=== PATIENT | female | born 1950 | race Caucasian/White ===

== ENCOUNTER 2018-09-27 11:00 | Outpatient (RCR) | payer SELFPAY | END 2018-10-09 23:59 | LOC: NS 11:00 | PROVIDERS: Family Provider Family Medicine; PCP Family Medicine; Visit Provider Family Medicine | DX: E66.9 Obesity, unspecified (principal); Z68.33 Body mass index [BMI] 33.0-33.9, adult; Z71.3 Dietary counseling and surveillance | CPT/HCPCS: 97802; 97803 ==

== ENCOUNTER → 2018-10-02 14:52 | Outpatient (CLI) | payer MEDICARE, SELFPAY ==
[2018-10-02 15:35] LABS: Hematocrit 40.1 % (37-47); Hemoglobin 13.1 g/dL (12.0-15.0); Mean Corp Hgb Conc 32.7 g/dL (32-36); Mean Corpuscular Hgb 31.6 pg (27.0-32.0); Mean Corpuscular Volume 96.6 fL (81-99); Mean Platelet Vol. 9.7 fl (6.2-12.0); Platelet Count 248 K/mm3 (150-450); RBC Distribution Width CV 13.9 % (11.6-14.6); RBC Distribution Width SD 49.5 fl (35.1-43.9); Red Blood Count 4.15 M/mm3 (4.2-5.4); White Blood Count 8.1 K/mm3 (4.4-11.0)
[2018-10-02 16:25] LABS: Anion Gap 5 (5-15); BUN 20 mg/dL (7-18); BUN/Creat Ratio 25.6 RATIO (10-20); Calcium,Total 8.8 mg/dL (8.5-10.1); Chloride 109 mmol/L (98-107); Creatinine, Serum 0.78 mg/dL (0.55-1.02); EST Glomerular Filtration Rate 78 mL/min (>60); Est Glom Filt Rate - Afr Amer 95 mL/min (>60); Glucose 90 mg/dL (74-106); Sodium Level 139 mmol/L (136-145)
[2018-10-07 14:08] LABS: PROEL- A/G Ratio 1.2 (0.7-1.7); PROEL- Albumin 3.8 g/dL (2.9-4.4); PROEL- Alpha-1 Globulin 0.2 g/dL (0.0-0.4); PROEL- Alpha-2 Globulin 0.7 g/dL (0.4-1.0); PROEL- Beta Globulin 0.9 g/dL (0.7-1.3); PROEL- Gamma Globulin 1.3 g/dL (0.4-1.8); PROEL- Globulin, Total 3.2 g/dL (2.2-3.9); PROELU- Albumin, Urine 25.7 % (.); PROELU- Alpha-1-Globulin,Ur 1.2 % (.); PROELU- Alpha-2-Globulin,Ur 9.8 % (.); PROELU- Beta Globulin, Ur 15.9 % (.); PROELU- Gamma Globulin, Ur 47.4 % (.); Total Protein, Ur 33.3 mg/dL (Not Estab.)
== END ==
PROVIDERS: Family Provider Family Medicine; PCP Family Medicine; Referring Provider Orthopaedic Surgery; Visit Provider Orthopaedic Surgery
DX: M25.561 Pain in right knee (principal)
CPT/HCPCS: 36415; 80048; 84165; 84166; 85027

== ENCOUNTER → 2018-10-25 12:35 | Outpatient (CLI) | payer MEDICARE, SELFPAY ==
[2018-10-25 13:20] LABS: Erythrocyte Sedimentation Rate 43 mm/hr (0-30)
[2018-10-25 13:24] LABS: Absolute Lymphocyte Count 1.81 X10^3/uL (0.83-4.51); Absolute Neutrophil Count 4.2 X10^3/uL (2.0-7.7); Basophil# 0.03 X10^3/uL; Basophil% 0.4 % (0-1); Eosinophil# 0.09 X10^3/uL; Eosinophils% 1.3 % (0-5); Hematocrit 39.2 % (37-47); Lymphocyte # 1.81 X10^3/ul (4.0); Lymphocyte % 26.1 % (19-41); Mean Corp Hgb Conc 33.2 g/dL (32-36); Mean Corpuscular Hgb 32.3 pg (27.0-32.0); Mean Corpuscular Volume 97.5 fL (81-99); Mean Platelet Vol. 9.5 fl (6.2-12.0); Monocyte# 0.73 X10^3/uL; Monocyte% 10.5 % (0-10); NRBC Flagged by Analyzer 0 % (0-5); Neutrophil # 4.22 X10^3/uL (2.7-7.7); POSITIVE MORPHOLOGY YES; Platelet Count 224 K/mm3 (150-450); RBC Distribution Width SD 50.9 fl (35.1-43.9); Red Blood Count 4.02 M/mm3 (4.2-5.4); White Blood Count 6.9 K/mm3 (4.4-11.0)
[2018-10-25 13:27] LABS: Differential Indicated SCAN CRITERIA MET
[2018-10-29 16:07] LABS: PROEL- A/G Ratio 1.2 (0.7-1.7); PROEL- Albumin 3.8 g/dL (2.9-4.4); PROEL- Alpha-1 Globulin 0.2 g/dL (0.0-0.4); PROEL- Alpha-2 Globulin 0.7 g/dL (0.4-1.0); PROEL- Gamma Globulin 1.4 g/dL (0.4-1.8); PROEL- Globulin, Total 3.3 g/dL (2.2-3.9); PROEL- TOTAL PROTEIN 7.1 g/dL (6.0-8.5); PROELU- Alpha-1-Globulin,Ur 2.8 % (.); PROELU- Alpha-2-Globulin,Ur 9.3 % (.); PROELU- Beta Globulin, Ur 22.2 % (.); PROELU- Gamma Globulin, Ur 42.6 % (.); Total Protein, Ur 26.1 mg/dL (Not Estab.)
== END ==
PROVIDERS: Family Provider Family Medicine; PCP Family Medicine; Referring Provider Orthopaedic Surgery; Visit Provider Orthopaedic Surgery
DX: M25.561 Pain in right knee (principal); M54.5 Low back pain
CPT/HCPCS: 36415; 84165; 84166; 85025; 85652; 86140

== ENCOUNTER 2018-11-04 10:00 | Outpatient (RCR) | payer SELFPAY | END 2018-11-09 23:59 | LOC: NS 10:00 | PROVIDERS: Family Provider Family Medicine; PCP Family Medicine; Visit Provider Family Medicine | DX: E66.9 Obesity, unspecified (principal); Z68.33 Body mass index [BMI] 33.0-33.9, adult; Z71.3 Dietary counseling and surveillance | CPT/HCPCS: 97803 ==

== ENCOUNTER 2018-12-02 11:30 | Outpatient (RCR) | payer SELFPAY | END 2018-12-09 23:59 | LOC: NS 11:30 | PROVIDERS: Family Provider Family Medicine; PCP Family Medicine; Visit Provider Family Medicine | DX: E66.9 Obesity, unspecified (principal); Z68.33 Body mass index [BMI] 33.0-33.9, adult; Z71.3 Dietary counseling and surveillance | CPT/HCPCS: 97803 ==

== ENCOUNTER 2018-12-30 09:30 | Outpatient (RCR) | payer SELFPAY | END 2018-12-30 23:59 | disposition home or self-care (01) | LOC: NS 09:30 | PROVIDERS: Family Provider Family Medicine; PCP Family Medicine; Visit Provider Family Medicine | DX: Z71.3 Dietary counseling and surveillance (principal); E66.9 Obesity, unspecified; Z68.33 Body mass index [BMI] 33.0-33.9, adult | CPT/HCPCS: 97803 ==

== ENCOUNTER 2020-03-27 10:24 | Emergency (ER) | payer MEDICARE, SELFPAY ==
[2020-03-27 10:25] VITALS: BP 114/83; PULSE 66; RESP 16; TEMP 36.9; O2SAT 95; BMI 33.5
--- NOTE | 2020-03-27 10:35 | ED.DCSUM_ITS ---
History of Present Illness Chief Complaint: Chest Other Informant: Patient Onset: Weeks - 1 week Context: Gradual Onset Current Severity: Mild Maximum Severity: Moderate Narrative: Patient presents secondary to sternal pain after a fall. She reports 1 week ago carrying some [place] wreaths down her basement steps. Her knee gave out on her and she fell striking her left hip and left arm, then hitting her chest against the cement. Patient denies striking her head. She reports pain of the sternal area for the past week but last night started noticing pain rating along the left lower ribs. Pain is worse with movement of her left arm. She has been taking Tylenol as needed for pain. - Past Medical History (1) Asthma Status: Chronic (2) GERD (gastroesophageal reflux disease) Status: Chronic (3) Hypothyroid Status: Chronic Past Medical History - Allergies and Home Meds Allergies/Adverse Reactions: Allergies amoxicillin [Amoxicillin] Allergy (Verified 03/27/20 10:28) Anaphylaxis articaine Allergy (Verified 03/27/20 10:28) Swelling lidocaine Allergy (Verified 03/27/20 10:28) redness/itching raloxifene [From Evista] Allergy (Verified 03/27/20 10:28) Swelling Primary Care Physician: Derian De Jesus MD [Primary Care Provider] - 1 Week if not improving Prior records reviewed: Yes Lives: Spouse/ Significant Other Smoking Status: Former smoker Review of Systems General: Denies: Chills, Fever Eyes: Denies: Visual changes - bilaterally ENT: Denies: Bilateral ear pain Cardiovascular: Reports: Chest pain Respiratory: Reports: Dyspnea. Denies: Cough Gastrointestinal: Denies: Abdominal pain, Nausea, Vomiting, Diarrhea Musculoskeletal: Denies: Neck pain, Back pain Skin: Reports: Wounds - Ecchymoses Neurological: Denies: Headache Hematologic: Denies: Easy bruising, Easy bleeding Allergy: Denies: Uticaria Physical Exam Vital Signs/Narrative: Vital Signs Temp Pulse Resp BP Pulse Ox 03/27/20 10:25 98.5 F 66 16 114/83 H 95 Inital Vital Signs reviewed: Yes General: Well nourished, Well developed Head: Normocephalic ENT: Moist mucous membranes Neck: Supple Cardiovascular: Regular rate, Regular rhythm Respiratory: No distress, CTA bilaterally, Chest tenderness - Reproducible tenderness over the lower sternum. No crepitus. Abdomen: Soft, Nontender Skin: - - Ecchymoses noted to the posterior left upper arm as well as to the underside of the left breast. Neurological: Alert, Oriented x3, Normal Strength, Normal Sensation Psychological: Normal affect Diagnostic/Tx/Re-eval Chest X-Ray - ED: 2 View, Read by ED Physician, Chronic Changes, - - No obvious rib or sternal fracture. Impressions Chest X-Ray 03/27/20 10:45 IMPRESSION: No acute cardiopulmonary process. Electronically Signed: Yris Merchant MD at 11:04 EST Tel , Service support , 03/27/20 10:45 Chest PA and Lateral [RAD] Stat - Medical Decision Making Patient has reproducible chest wall pain after a fall. 2 view chest x-ray is unremarkable. Patient is reassured with these findings and will continue Tylenol at home. She declines anything stronger for pain. ED Disposition - Plan for ED Patient: Disposition: Home or Assisted Living Diagnosis: Chest wall contusion Instructions: ED Chest Wall Contusion Referrals: Derian De Jesus MD [Primary Care Provider] - 1 Week if not improving
--- NOTE | 2020-03-27 10:45 | RAD_ITS ---
STUDY: X-RAY CHEST REASON FOR EXAM: Female, 69 years old. CHEST PAIN WITH MOVEMENT POST FALL X 1 WEEK AGO. LEFT ARM AND SHOULDER PAIN. TECHNIQUE: Frontal and lateral views of the chest. COMPARISON: 05/29/2016 FINDINGS: There is stable blunting of the left costophrenic angle. There is no new focal consolidation. Normal size heart. Normal mediastinum and karen. Normal visualized pulmonary arteries. Normal visualized aortic arch and descending thoracic aorta. There are diffuse degenerative changes of the visualized thoracic spine. Normal visualized ribs, clavicles, and shoulders. There is no demonstrated abnormality of the visualized soft tissue structures of the upper abdomen. RAD/Chest PA and Lateral IMPRESSION: No acute cardiopulmonary process. Electronically Signed: Yris Merchant MD at 11:04 EST Tel , Service support ,
== END 2020-03-27 11:37 | disposition home or self-care (01) ==
PROVIDERS: Emergency Provider Emergency Medicine; PCP Family Medicine
DX: S20.219A Contusion of unspecified front wall of thorax, initial encounter (principal); W01.198A Fall on same level from slipping, tripping and stumbling with subsequent striking against other object, initial encounter; Y93.9 Activity, unspecified; Y92.098 Other place in other non-institutional residence as the place of occurrence of the external cause; Y99.9 Unspecified external cause status; E03.9 Hypothyroidism, unspecified; J45.909 Unspecified asthma, uncomplicated; K21.9 Gastro-esophageal reflux disease without esophagitis; Z87.891 Personal history of nicotine dependence; Z88.0 Allergy status to penicillin
CPT/HCPCS: 71046; 99282

== ENCOUNTER 2020-05-18 23:05 | Outpatient (RCR) | payer MEDICARE, SELFPAY ==
[2020-05-18] MEDS: COVID-19 VACC, MRNA(PFIZER)/PF 30 MCG/0.3 ML SYRINGE IM (12:18)
[2020-06-08] MEDS: COVID-19 VACC, MRNA(PFIZER)/PF 30 MCG/0.3 ML SYRINGE IM (09:32)
== END 2020-08-17 23:59 ==
LOC: IMMUN 23:05
PROVIDERS: PCP Family Medicine; Visit Provider Family Medicine
DX: Z23 Encounter for immunization (principal)
CPT/HCPCS: 0001A; 0002A; 91300

== ENCOUNTER → 2020-05-19 06:44 | Outpatient (CLI) | payer MEDICARE, SELFPAY ==
--- NOTE | 2020-05-19 06:46 | CT_ITS ---
STUDY: CT RIGHT LOWER EXTREMITY REASON FOR EXAM: Osteoarthritis, presurgical planning. TECHNIQUE: Transaxial CT imaging of the lower extremity was performed. Coronal and sagittal images were reformatted. Individualized dose optimization techniques were used for this CT. COMPARISON: None. FINDINGS: Knee: Normal medial femoral condyle and medial tibial plateau. There are small marginal osteophytes of the medial femoral condyle with preservation of the articular joint space of the medial knee compartment. There is a subchondral cyst in the lateral tibial plateau (coronal reconstructions 37, 38). There are small marginal osteophytes of the lateral femoral condyle with preservation of the articular joint space of the lateral knee compartment. There are marginal osteophytes with severe joint space narrowing of the lateral aspect of the patellofemoral articulation (axial images 278-to 32) with lateral tilt and lateral subluxation of the patella. Normal proximal tibiofibular articulation. There is no joint effusion. The quadriceps tendon is grossly normal. There is an ossicle at the anterior tibial tubercle, a sequelae of remote Les-Schlatter''s disease. Normal Hoffa''s fat pad. There is a very small intra-articular body at the posterior lateral aspect of the knee (sagittal reconstruction 33). Hip: Unremarkable hip joint. Ankle: Unremarkable tibiotalar, posterior subtalar, talonavicular and calcaneocuboid articulations. CT/Extremity Lower without Contra IMPRESSION: Patellofemoral osteoarthritis. Electronically Signed: Shmuel Sales MD at 11:42 EST Tel , Service support ,
== END ==
PROVIDERS: PCP Family Medicine; Referring Provider Orthopaedic Surgery; Visit Provider Orthopaedic Surgery
DX: M17.11 Unilateral primary osteoarthritis, right knee (principal)
CPT/HCPCS: 73700

== ENCOUNTER 2020-06-07 17:19 | Observation (INO) | payer MEDICARE, SELFPAY ==
--- NOTE | 2020-05-25 12:48 | EKG12_ITS ---
Test Reason : PRE SURGERY Blood Pressure : / mmHG Vent. Rate : 057 BPM Atrial Rate : 057 BPM P-R Int : 176 ms QRS Dur : 088 ms QT Int : 432 ms P-R-T Axes : 057 006 011 degrees QTc Int : 420 ms Sinus bradycardia Otherwise normal ECG Confirmed by JOSUE PAREDES, BRAN ([id number]), non linear editor HARDEEP FRANKS ([id number]) on 05/26/2020 10:06:24 AM Referred By: Osbaldo Armenta Confirmed By:BRAN SALAS MD
[2020-05-25 13:50] LABS: Hematocrit 46.6 % (37-47); Hemoglobin 14.4 g/dL (12.0-15.0); Mean Corp Hgb Conc 30.9 g/dL (32-36); Mean Corpuscular Hgb 28.7 pg (27.0-32.0); Mean Platelet Vol. 12.5 fl (6.2-12.0); Platelet Count 238 K/mm3 (150-450); RBC Distribution Width CV 14.3 % (11.6-14.6); RBC Distribution Width SD 48.5 fl (35.1-43.9); Red Blood Count 5.01 M/mm3 (4.2-5.4); White Blood Count 6.6 K/mm3 (4.4-11.0)
[2020-05-25 13:57] LABS: Prothrombin Time (Protime)PT. 12.6 SECONDS (11.7-14.9)
[2020-05-25 14:10] LABS: Anion Gap 5 (5-15); BUN 21 mg/dL (7-18); BUN/Creat Ratio 23.4 RATIO (10-20); Calcium,Total 9.5 mg/dL (8.5-10.1); Chloride 107 mmol/L (98-107); EST Glomerular Filtration Rate 67 mL/min (>60); Est Glom Filt Rate - Afr Amer 81 mL/min (>60); Glucose 72 mg/dL (74-106); Potassium 3.6 mmol/L (3.5-5.1); Sodium Level 140 mmol/L (136-145)
[2020-05-25 14:28] LABS: AST(SGOT) 11 U/L (15-37); Alanine Aminotransfer ALT/SGPT 23 U/L (13-56); Albumin, Serum 3.9 g/dL (3.2-5.0); Alkaline Phosphatase 98 U/L (45-117); Bilirubin, Direct 0.18 mg/dL (0.00-0.30); Globulin 3.3 g/dL (2.2-4.2); Magnesium 2.3 mg/dL (1.6-2.6); Protein, Total 7.2 g/dL (6.4-8.2); Thyroid Stim Hormone (TSH) 1.26 uIU/mL (0.358-3.74)
[2020-06-07] VITALS (12 sets, daily range): BP systolic 95–138; BP diastolic 47–75; PULSE 16–82; RESP 16; TEMP 35.9–36.7; O2SAT 89–99; BMI 33.3
[2020-06-07] MEDS: Acetaminophen 500 MG Tablet 1000 MG PO ×2 (12:18→21:09)
[2020-06-07] MEDS: Gabapentin 600 MG Tablet PO (12:18)
[2020-06-07 12:20] LABS: Bedside Glucose 80 mg/dL (70-110)
[2020-06-07] MEDS: Lactated Ringers 1,000 ML 100 ML IV (12:21)
--- NOTE | 2020-06-07 13:30 | KNEE_PTH ---
PATIENT: RODERICK ORTIZ LOC: MS3 U#:[id number] AGE/SX: 70/F ROOM: [facility] [place]06/07/[address]: Dr. Osbaldo Armenta DO : 1950 BED: 1 DIS: 06/08/2020 SPEC #: [id number] RECD: 06/07/20 15:22 STATUS: CLARE REMaría #: [id number] MIKAL: 06/07/20 13:[address]: Osbaldo Armenta DEPT: SURGICAL PATHOLOGY RECD BY: Mala Moore ENTERED: 06/08/20 07:40 SP TYPE: TOTAL KNEE OTHR DR: Dr. Derian De Jesus MD Tissues: Knee, NOS Procedures: Decalcification bone/plaque Surgery Specimen Level IV HEADER OPERATION: ERAS, total knee replacement robotic arm assist PRE-OP DIAGNOSIS: Primary osteoarthritis TISSUE SUBMITTED: Right knee bone MICROSCOPIC DIAGNOSIS Right knee bone, total knee replacement/resection: Pieces of bone with degenerative osteoarthritic changes. Fibroadipose tissue, fibroconnective tissue and reactive synovial tissue. JAJA:lynn 06/11/2020 MICROSCOPIC DESCRIPTION Slides are reviewed. GROSS DESCRIPTION Received is one container designated right knee bone. The specimen consists of multiple fragments of gavin-yellow bone measuring in aggregate 8 x 9 x 3 cm. Also in the specimen container are multiple fragments of yellow-white soft tissue measuring in aggregate 7 x 7 x 3 cm. A number of bony fragments contain articular surfaces consistent with tibial plateau and femoral condyle and displaying prominent osteophyte formation, eburnation, and bone erosion. Door Clamp Operator sections are submitted in two cassettes as follows: 1 - soft tissue, 2 - bone after decalcification. / JAJA:lynn 06/08/20 TC:5 [facility]: [id number], [id number]
--- NOTE | 2020-06-07 14:18 | OP.PCM_ITS ---
Report of Operation Date of Procedure: 06/07/20 Pre-Operative Diagnosis: OA right knee Post-Operative Diagnosis: same Surgery/Procedure Performed:: Right TKR railroad brake operator: Yogesh Villarreal Type of Anesthesia:: Spinal Anesthesiologist: Rohan Longoria Specimen's removed: bone - Admit VTE Documentation VTE Present on Admission: No VTE Mechan Device Prophylaxis: SCD's, Thigh High RAMA Hose VTE Pharm Prophylaxis ordered?: Yes
[2020-06-07] MEDS: Lactated Ringers 1,000 ML 999 ML IV (15:25)
--- NOTE | 2020-06-07 16:25 | RAD_ITS ---
STUDY: X-RAY - RIGHT KNEE REASON FOR EXAM: Female, 70 years old. POST-OP TOTAL KNEE TECHNIQUE: 2 view(s) of the knee. COMPARISON: None. FINDINGS: Status post total knee arthroplasty. Surgical hardware intact/well aligned. No acute complications. Postoperative soft tissues with staple line. RAD/Knee 1 or 2 Views IMPRESSION: Uncomplicated right knee arthroplasty Electronically Signed: Rohan Gan DO at 8:29 EDT Tel , Service support ,
[2020-06-07 16:38] LABS: Absolute Lymphocyte Count 0.69 X10^3/uL (0.83-4.51); Absolute Neutrophil Count 11.4 X10^3/uL (2.0-7.7); Basophil# 0.03 X10^3/uL; Basophil% 0.2 % (0-1); Eosinophil# 0.02 X10^3/uL; Eosinophils% 0.2 % (0-5); Hematocrit 44.6 % (37-47); Hemoglobin 14.2 g/dL (12.0-15.0); Lymphocyte # 0.69 X10^3/ul (4.0); Lymphocyte % 5.5 % (19-41); Mean Corp Hgb Conc 31.8 g/dL (32-36); Mean Corpuscular Hgb 29.5 pg (27.0-32.0); Mean Corpuscular Volume 92.7 fL (81-99); Mean Platelet Vol. 10.9 fl (6.2-12.0); Monocyte# 0.28 X10^3/uL; Monocyte% 2.2 % (0-10); NRBC Flagged by Analyzer 0 % (0-5); Neutrophil % 91.4 % (47-70); Platelet Count 230 K/mm3 (150-450); RBC Distribution Width CV 14.4 % (11.6-14.6); RBC Distribution Width SD 49.6 fl (35.1-43.9); Red Blood Count 4.81 M/mm3 (4.2-5.4); White Blood Count 12.5 K/mm3 (4.4-11.0)
[2020-06-07 17:00] LABS: Anion Gap 5 (5-15); BUN 15 mg/dL (7-18); BUN/Creat Ratio 17.3 RATIO (10-20); Calcium,Total 8.9 mg/dL (8.5-10.1); Chloride 108 mmol/L (98-107); Creatinine, Serum 0.87 mg/dL (0.55-1.02); EST Glomerular Filtration Rate 69 mL/min (>60); Est Glom Filt Rate - Afr Amer 84 mL/min (>60); Estimated Creatinine Clearance 57.94 ml/min; Glucose 140 mg/dL (74-106); Potassium 5.1 mmol/L (3.5-5.1); Sodium Level 140 mmol/L (136-145)
[2020-06-07] MEDS: Lactated Ringers 1,000 ML 125 ML IV (17:52)
[2020-06-07] MEDS: oxyCODONE 5 MG Tablet PO ×2 (18:37→23:08)
[2020-06-07] MEDS: Budesonide Respules 0.5 MG/2 ML AMPUL.NEB. INHALATION (19:18)
[2020-06-07] MEDS: Aspirin 81 MG TAB.CHEW PO (21:08)
[2020-06-07] MEDS: Senna/Docusate Sodium 1 Tablet 2 TABLET PO (21:08)
[2020-06-07] MEDS: Oxybutynin 5 MG Tablet 10 MG PO (21:08)
[2020-06-08] VITALS: O2SAT 92
--- NOTE | 2020-06-08 | CPS ---
Oxygen bled into Pt's home CPAP unit at 2 lpm.
[2020-06-08 02:46] VITALS: BP 110/58; PULSE 70; RESP 18; TEMP 36.9; O2SAT 94
[2020-06-08] MEDS: Levothyroxine 137 MCG Tablet PO (05:17)
[2020-06-08] MEDS: Acetaminophen 500 MG Tablet 1000 MG PO ×2 (05:17→14:10)
[2020-06-08 06:35] LABS: Hematocrit 41.4 % (37-47); Hemoglobin 13.5 g/dL (12.0-15.0); Mean Corp Hgb Conc 32.6 g/dL (32-36); Mean Corpuscular Hgb 29.9 pg (27.0-32.0); Mean Corpuscular Volume 91.8 fL (81-99); Mean Platelet Vol. 11.3 fl (6.2-12.0); Platelet Count 300 K/mm3 (150-450); RBC Distribution Width CV 14.5 % (11.6-14.6); Red Blood Count 4.51 M/mm3 (4.2-5.4); White Blood Count 18.3 K/mm3 (4.4-11.0)
[2020-06-08 06:57] VITALS: PULSE 79; RESP 16
[2020-06-08] MEDS: Budesonide Respules 0.5 MG/2 ML AMPUL.NEB. INHALATION (06:57)
[2020-06-08 06:59] LABS: Anion Gap 5 (5-15); BUN 18 mg/dL (7-18); BUN/Creat Ratio 21.4 RATIO (10-20); Calcium,Total 9.1 mg/dL (8.5-10.1); Chloride 108 mmol/L (98-107); Creatinine, Serum 0.84 mg/dL (0.55-1.02); EST Glomerular Filtration Rate 72 mL/min (>60); Est Glom Filt Rate - Afr Amer 87 mL/min (>60); Estimated Creatinine Clearance 60.01 ml/min; Glucose 108 mg/dL (74-106); Potassium 4.5 mmol/L (3.5-5.1); Sodium Level 137 mmol/L (136-145)
[2020-06-08 07:40] VITALS: BP 108/55; PULSE 69; RESP 18; TEMP 36.9; O2SAT 94
--- NOTE | 2020-06-08 07:50 | PN.ORTHO_ITS ---
Subjective: Patient sitting at bedside eating breakfast. Patient states pain is well- managed. Patient denies chest pain, shortness of breath, calf pain, nausea vomiting. Patient states she is ready for discharge home today. Objective: Dressing is clean dry intact. Negative signs and symptoms of DVT. Vital signs labs were all reviewed noted in the medical record. Patient is afebrile. Neurovascular she is otherwise intact. Patient has no respiratory distress and speaking in full sentences - Physical Exam Vitals/I&O's: Vital Signs Temp Pulse Resp BP Pulse Ox 98.4 F 69 18 108/55 L 94 06/08/20 07:40 06/08/20 07:40 06/08/20 07:40 06/08/20 07:40 06/08/20 07:40 Oxygen Flow Rate (L/min) 2 Oxygen Delivery Method Room Air Weight: 93.8 kg Body Mass Index (BMI) 33.3 Intake and Output for Last 24 Hours 06/06/20 06/07/20 06/08/20 23:59 23:59 23:59 Intake Total 3202.0 / 3202.0 54 / 54 Output Total 300 / 300 Balance 3202.0 / 2902.0 -246 / -246 General: Alert, Oriented x3, Cooperative HEENT: PERRLA Oral: Moist Mucosa Neurological: Cranial nerves II-XII grossly intact Psych/Mental Status: Normal Affect, Alert and oriented to time, place, person, mood and affect Laboratory Results 06/07/20 11:52: POC Glucose 80 06/07/20 16:26: WBC 12.5 H, RBC 4.81, Hgb 14.2, Hct 44.6, MCV 92.7, MCH 29.5, MCHC 31.8 L, RDW Std Deviation 49.6 H, RDW Coeff of Kayce 14.4, Plt Count 230, MPV 10.9, Immature Gran % (Auto) 0.500, Neut % (Auto) 91.4 H, Lymph % (Auto) 5.5 L, Laurel % (Auto) 2.2, Eos % (Auto) 0.2, Baso % (Auto) 0.2, Absolute Neuts (auto) 11.4 H, Absolute Lymphs (auto) 0.69 L, Nucleated RBC % 0 06/07/20 16:26: Sodium 140, Potassium 5.1, Chloride 108 H, Carbon Dioxide 27.0, Anion Gap 5, BUN 15, Creatinine 0.87, Estim Creat Clear Calc 57.94, Est GFR (MDRD) Af Amer 84, Est GFR (MDRD) Non-Af 69, BUN/Creatinine Ratio 17.3, Glucose 140 H, Calcium 8.9 06/08/20 05:40: WBC 18.3 H, RBC 4.51, Hgb 13.5, Hct 41.4, MCV 91.8, MCH 29.9, MCHC 32.6, RDW Std Deviation 49.0 H, RDW Coeff of Kayce 14.5, Plt Count 300, MPV 11.3 06/08/20 05:40: Sodium 137, Potassium 4.5, Chloride 108 H, Carbon Dioxide 24.0, Anion Gap 5, BUN 18, Creatinine 0.84, Estim Creat Clear Calc 60.01, Est GFR (MDRD) Af Amer 87, Est GFR (MDRD) Non-Af 72, BUN/Creatinine Ratio 21.4 H, Glucose 108 H, Calcium 9.1 Current Medications Acetaminophen (Acetaminophen 500 Mg Tablet) 1,000 mg PO Q8 PENDING SALE TO [facility] Last Admin: 06/08/20 05:17 Dose: 1,000 mg Documented by: Aspirin (Aspirin 81 Mg Tab.Chew) 81 mg PO BID PENDING SALE TO [facility] Last Admin: 06/07/20 21:08 Dose: 81 mg Documented by: Budesonide (Budesonide Respules 0.5 Mg/2 Ml Ampul.Neb.) 0.5 mg INHALATION Q12H.RT PENDING SALE TO [facility] Last Admin: 06/08/20 06:57 Dose: 0.5 mg Documented by: Fluticasone Propionate (Fluticasone 0.05% [address] [place] Nasal.Sry) 2 spray NASAL DAILY PENDING SALE TO [facility] Sodium Chloride () 250 mls @ 15 mls/hr IV .[id number] PRN PRN Reason: Saline Flush Sodium Chloride () 250 mls @ 15 mls/hr IV .[id number] PRN PRN Reason: Additional IVPB Infusion Levothyroxine Sodium (Levothyroxine 137 Mcg Tablet) 137 mcg PO DAILY@0600 PENDING SALE TO [facility] Last Admin: 06/08/20 05:17 Dose: 137 mcg Documented by: Non-Formulary Medication (Ibrutinib [Imbruvica]) 420 mg PO DAILY PENDING SALE TO [facility] Ondansetron HCl (Ondansetron 4 Mg/2 Ml Vial) 4 mg IV Q8H PRN PRN PRN Reason: NAUSEA Oxybutynin Chloride (Oxybutynin 5 Mg Tablet) 10 mg PO BID PENDING SALE TO [facility] Last Admin: 06/07/20 21:08 Dose: 10 mg Documented by: Oxycodone HCl (Oxycodone 5 Mg Tablet) 5 - 10 mg PO Q4H PRN PRN PRN Reason: Pain Score 4-10 Last Admin: 06/07/20 23:08 Dose: 10 mg Documented by: Pantoprazole Sodium (Pantoprazole Sodium 20 Mg Tablet) 20 mg PO DAILY PENDING SALE TO [facility] Promethazine HCl (Promethazine 25 Mg/Ml Syringe) 12.5 mg IM Q6H PRN PRN; Louie col PRN Reason: NAUSEA/VOMITING Senna/Docusate Sodium (Senna/Docusate Sodium 1 Tablet) 2 tablet PO BID PENDING SALE TO [facility] Last Admin: 06/07/20 21:08 Dose: 2 tablet Documented by: Sodium Chloride (0.9% Saline Lock 10 Ml Syringe) 10 - 40 ml IV UD PRN PRN Reason: SALINE FLUSH Medical Necessity - Tobacco Use Smoking Status: Never smoker Tobacco Use: Non-smoker Assessment/Plan Status post right total knee arthroplasty Plan 1. Continue all pain medications as prescribed 2. Continue physical therapy, weight-bear as tolerated with walker 3. 81 mg aspirin 1 p.o. every 12 hours x30 days for postop DVT prophylaxis 4. Encourage incentive spirometry 5. Discharge home today after p.m. therapy 6. Patient will continue her physical therapy at [facility] [place] Follow-up as scheduled, see pink sheet
[2020-06-08] MEDS: Oxybutynin 5 MG Tablet 10 MG PO (07:53)
[2020-06-08] MEDS: Pantoprazole Sodium 20 MG Tablet PO (07:53)
[2020-06-08] MEDS: Senna/Docusate Sodium 1 Tablet 2 TABLET PO (07:53)
[2020-06-08] MEDS: oxyCODONE 5 MG Tablet PO ×2 (07:53→11:52)
[2020-06-08] MEDS: Fluticasone 0.05% 1 SPRAY NASAL.SRY 2 SPRAY NASAL (07:54)
[2020-06-08] MEDS: Aspirin 81 MG TAB.CHEW PO (07:55)
--- NOTE | 2020-06-08 07:57 | DCINST_ITS ---
Discharge Diet: No Restrictions Discharge Activity: May Not Drive, May Shower, Use Walker May shower in (days): 3 Ice area for (Minutes): 20 - each hour while awake. Weight Bearing Status: Weight bearing as tolerated Elevate: Operative Extremity Additional Activity Instructions:: Wear elastic stockings for 2 weeks after your surgery. Call your doctor if your incision/area has: Continuous Slow Oozing, Sudden Increased Bleeding, Increased Pain/ Swelling, Increased Redness, Foul Smelling Discharge Call your doctor if you observe: Fever of 101 or Higher, Coldness, Increased Pain - in extremity, Numbness or Tingling, Change in Color, Calf discomfort, Uncontrolled pain Change Dressing in (Days):: 0 - and daily as needed. Remove Dressing in (days):: 8 Cleanse incision/area with: Soap & Water Allergies/Adverse Reactions: Allergies amoxicillin [Amoxicillin] Allergy (Verified 06/07/20 11:41) Anaphylaxis articaine Allergy (Verified 06/07/20 11:41) Swelling lidocaine Allergy (Verified 06/07/20 11:41) redness/itching raloxifene [From Evista] Allergy (Verified 06/07/20 11:41) Swelling morphine Adverse Reaction (Verified 06/07/20 11:41) Nausea/Vom/Diarrhea Medications to take at Discharge Cyanocobalamin (Vitamin B-12) [Vitamin B-12] 1,000 mcg PO DAILY 04/19/14 Oxybutynin [Ditropan] 10 mg PO BID 04/19/14 Cholecalciferol (Vitamin D3) [Vitamin D3] 1 cap PO DAILY 04/23/16 Fluticasone 0.05% [Flonase Nasal [place]] 2 sprays NARES DAILY 04/23/16 Mometasone Furoate [Asmanex 220 mcg [place]] 2 sprays INHALATION DAILY 04/23/16 Ibrutinib [Imbruvica] 420 mg PO DAILY 03/27/20 Levothyroxine Sodium 137 mcg PO DAILY 03/27/20 Celecoxib [Celebrex] 100 mg PO DAILY 05/24/20 Clindamycin [Cleocin] 300 mg PO 4X/DAY 05/24/20 Omeprazole [Prilosec] 20 mg PO DAILY 05/24/20 Acetaminophen [Tylenol] 1,000 mg PO Q8 #90 tablet 06/08/20 Aspirin [Aspirin, Baby] 81 mg PO BID #60 tab.chew 06/08/20 Oxycodone [Oxyir] 5 - 10 mg PO Q4H PRN PRN 7 Days #84 tablet 06/08/20 Senna/Docusate Sodium [Senokot-S] 2 tablet PO BID tablet 06/08/20 The following prescriptions were given: Aspirin [Aspirin, Baby] 81 mg PO BID #60 tab.chew Transmission Status: Pending to [facility] Oxycodone [Oxyir] 5 - 10 mg PO Q4H PRN PRN 7 Days #84 tablet PRN Reason: Pain Score 4-10 Transmission Status: Sent to [facility] Acetaminophen [Tylenol] 1,000 mg PO Q8 #90 tablet Transmission Status: Pending to [facility] Primary Care Physician: Derian De Jesus MD [Primary Care Provider] - Test Results: Test results from this visit will be discussed in further detail at your follow- up appointment, if applicable. Please Follow Up With: Yogesh Villarreal PA-C When: as scheduled (see pink sheet)
[2020-06-08 10:22] VITALS: O2SAT 98
--- NOTE | 2020-06-08 11:00 | CASEMGMT ---
STORMY VIZCARRA Face to Face with patient for initial transition planning/care coordination assessment. RN CARMITA introduced self and role at [facility]. Patient sitting in chair, alert and oriented, at bedside. Patient willing to participate in assessment and is able to answer all questions appropriately. Care providers, pharmacy, and demographics verified. Patient wishes to discharge home and has outpatient therapy scheduled with [facility]. Patient states she has no further needs or concerns at this time. CM to follow for discharge planning needs that may arise. PCP: Neal Specialists: aditya Armenta; Devendra, oncologist; Lyndsey, poultry field service technician Preferred Pharmacy: [facility] Insurance: [employer] Prescription Benefit: yes Living Will/HPOA: yes, Stephen Gutiérrez LNOK: Living Arrangements: Patient lives with in a single story home with 1 step to enter the home. Patient states she was independent at home prior to surgery. Transportation: DME/C: Patient states she has raised toilet, grab bars, walker, bipap, and nebulizer at home. Patient is scheduled for outpatient therapy at [facility] starting Sunday. Disposition Plan: Patient to discharge home with outpatient therapy, family support, and follow-up plans in place. Katelyn MOHAMUD, RN, CM
[2020-06-08 11:44] VITALS: BP 102/52; PULSE 72; RESP 18; TEMP 36.9; O2SAT 94
== END 2020-06-08 14:26 | disposition home or self-care (01) ==
LOC: SDC 17:31 → MS3 17:31
PROVIDERS: Anesthesiology; Admitting Provider Orthopaedic Surgery; PCP Family Medicine; Referring Provider Orthopaedic Surgery; Visit Provider Orthopaedic Surgery
PROC: 0SRC0JZ Replacement of Right Knee Joint with Synthetic Substitute, Open Approach (ICD-10-PCS; CPT 27447; principal; 2020-06-07 13:00)
DX: M17.11 Unilateral primary osteoarthritis, right knee (principal); Z20.828 Contact with and (suspected) exposure to other viral communicable diseases; E03.9 Hypothyroidism, unspecified; K21.9 Gastro-esophageal reflux disease without esophagitis; Z86.2 Personal history of diseases of the blood and blood-forming organs and certain disorders involving the immune mechanism; K58.9 Irritable bowel syndrome, unspecified; Z79.899 Other long term (current) drug therapy; J44.9 Chronic obstructive pulmonary disease, unspecified; C83.50 Lymphoblastic (diffuse) lymphoma, unspecified site
CPT/HCPCS: 01402; 27447; 64447; S2900; 36415; 73560; 80048; 80076; 82962; 83735; 84443; 85025; 85027; 85610; 85730; 87081; 87426; 88305; 88311; 93005; 94640; 96361; 96365; 96366; 97110; 97116; 97162; 97166; 97530; 97535; 99218; 99251; C1776; C9803; J7120; G0378; G0379; G0463; J2405

== ENCOUNTER → 2020-06-30 12:51 | Outpatient (CLI) | payer MEDICARE, SELFPAY ==
[2020-06-07 17:13] VITALS: BMI 33.3
--- NOTE | 2020-06-30 12:55 | CT_ITS ---
STUDY: CT CHEST WITHOUT CONTRAST REASON FOR EXAM: Female, 70 years old. Right lung nodule. RADIATION DOSAGE (If Supplied By Facility): CTDIvol = ( 13.36 ) mGy, DLP = ( 407.33 ) mGycm TECHNIQUE: Transaxial imaging was performed without the administration of intravenous contrast material. Multiplanar coronal and sagittal images were reformatted. Individualized dose optimization techniques were used for this CT. COMPARISON: Comparison is made with prior chest radiograph dated 05/31/2020. FINDINGS: No pulmonary nodule is seen. Mild degree of emphysematous changes. There is evidence of a healed anterior rib fracture with callus formation. This most likely was a questionable nodular seen on the chest radiograph. Mild increased markings in the left lower lobe suggestive of scarring. There is no demonstrated pleural abnormality. Normal heart and pericardium. There are multiple small lymph nodes within the mediastinum, which are normal in size and morphology most compatible with reactive lymph hyperplasia. Normal hilar regions. Normal unenhanced pulmonary arteries. Normal aorta arch and descending thoracic aorta. There are multi-level degenerative changes of the thoracic spine. There is no demonstrated abnormality of the visualized upper abdomen. CT/Chest without Contrast IMPRESSION: No pulmonary nodule is seen. There is evidence of a healed anterior right rib fracture which may have led to the possible nodular density seen on the chest radiograph. Mild increased markings at the left lung base suggestive of atelectasis. Electronically Signed: Arpit Salazar MD at 13:36 EDT , Service support ,
== END ==
PROVIDERS: PCP Family Medicine; Referring Provider Internal Medicine Pulmonary Disease; Visit Provider Internal Medicine Pulmonary Disease
DX: R91.8 Other nonspecific abnormal finding of lung field (principal)
CPT/HCPCS: 71250

== ENCOUNTER → 2020-11-17 10:45 | Outpatient (CLI) | payer MEDICARE, SELFPAY ==
[2020-06-07 17:13] VITALS: BMI 33.3
--- NOTE | 2020-11-17 10:50 | ECHOD_ITS ---
Reason For Study: Eval for PHTN Procedure This was a 2D Doppler, Color Flow transthoracic echocardiogram. The exam was of adequate technical quality. Exam performed in department. Left Ventricle Normal LV size. Left ventricular systolic function is normal. The estimated ejection fraction is 65 %. No evidence for diastolic dysfunction. No regional wall motion abnormalities noted. Right Ventricle Normal RV size. Normal systolic function. Atria Normal left atrium. Normal right atrium. No doppler evidence for ASD. Mitral Valve There is no mitral annular calcification. Normal mitral valve. Trivial mitral valve insufficiency. Tricuspid Valve Normal tricuspid valve. Trivial tricuspid valve insufficiency. Right ventricular systolic pressure estimated to be 31 mmHg. Aortic Valve Trisinus/trileaflet aortic valve. The aortic valve is not well visualized. Pulmonic Valve The pulmonic valve is not well visualized. Trivial pulmonic valve insufficiency. Great Vessels Normal sized aortic root. Pericardium/Pleural No pericardial effusion. MMode/2D Measurements & Calculations LVIDd: 4.1 cm IVSd: 0.90 cm Ao root diam: 3.4 cm LVIDs: 2.2 cm LVPWd: 0.83 cm LA dimension: 3.8 cm FS: 46.5 % LAV(MOD-bp): 45.7 ml LA A4 area: 17.3 cm2 RA A4 area: 14.2 cm2 LAV(MOD-bp) Indexed: 22.9 ml/m2 LAV(MOD-sp2): 47.0 ml LAV(MOD-sp4): 44.0 ml Time Measurements MV dec time: 0.23 sec Doppler Measurements & Calculations MV E max cesar: 74.4 cm/sec Lat Peak E' Cesar: 10.2 cm/sec Med Peak E' Cesar: 9.2 cm/sec MV A max cesra: 78.0 cm/sec E/E' lat: 7.3 E/E' med: 8.1 MV E/A: 0.95 MV V2 max: 91.7 cm/sec MV P1/2t max cesar: 71.7 cm/sec Ao V2 max: 138.6 cm/sec MV max P.4 mmHg MV P1/2t: 103.3 msec Ao max P.7 mmHg MV V2 mean: 44.5 cm/sec MV dec slope: 203.4 cm/sec2 MV mean P.96 mmHg MVA(P1/2t): 2.1 cm2 MV V2 VTI: 33.7 cm LV V1 max: 137.0 cm/sec PA V2 max: 95.3 cm/sec LV V1 max P.5 mmHg PI dec slope: 198.1 cm/sec2 TR max cesar: 265.3 cm/sec TR max P.2 mmHg ECHO/Echo Complete Interpretation Summary Left ventricular systolic function is normal. The estimated ejection fraction is 65 %. Trivial mitral valve insufficiency. Trivial tricuspid valve insufficiency. Trivial pulmonic valve insufficiency. Right ventricular systolic pressure estimated to be 31 mmHg. No evidence for diastolic dysfunction. Ordering Physician: Isaac Solorio Referring Physician: MD Neal Derian Performed By: Mikel Allen [facility]
== END ==
PROVIDERS: PCP Family Medicine; Referring Provider Internal Medicine Pulmonary Disease; Visit Provider Internal Medicine Pulmonary Disease
DX: R06.00 Dyspnea, unspecified (principal)
CPT/HCPCS: 93306

== ENCOUNTER → 2022-05-24 | Outpatient (CLI) | payer MEDICARE, SELFPAY ==
--- NOTE | 2022-05-24 14:46 | CT_ITS ---
STUDY: CT Abdomen And Pelvis W/O Contrast Injection 05/24/2022 3:17 PM REASON FOR EXAM: Female, 72 years old. Abdominal pain STONES/UTI. HISTORY OF LYMPHOMA AND TUBIAL LIGATION Individualized dose optimization techniques were used for this CT. COMPARISON: 04.23.16. TECHNIQUE: CT Abdomen And Pelvis W/O Contrast Injection FINDINGS: The visualized lung bases are unremarkable. The visualized portions of the heart are within normal limits. Normal liver. There is a solitary gallstone. Normal spleen. Normal pancreas. Normal bilateral adrenal glands. Non obstructive 2 mm right renal parenchymal stones. Non obstructive 7.8mm left renal parenchymal stones. There are hypodensities in the left kidney. These are consistent for cysts. No follow up required. Normal visualized stomach. Normal small intestine. There are multiple colonic diverticula consistent with diverticulosis. The appendix is visualized and appears normal. There are calcifications of the abdominal aorta. This is consistent for atherosclerotic disease. There is NO abdominal aortic aneurysm. Vascular workup can be obtained based on clinical correlation. Normal inferior vena cava. Subcentimeter mesenteric lymph nodes. Normal urinary bladder. There is an umbilical hernia containing fat. There are diffuse degenerative changes of the visualized lumbar spine. CT/Abdomen/Pelvis without Cont IMPRESSION: (NOT LISTED IN ORDER OF SIGNIFICANCE) There are bilateral renal calculi. There is no evidence for an obstruction. There is no hydronephrosis. There is a solitary gallstone. Other findings as above. Electronically Signed: Aaron Moon MD at 15:21 EDT ,
== END | disposition home or self-care (01) ==
LOC: CT 14:44
PROVIDERS: PCP Family Medicine; Referring Provider Urology; Visit Provider Urology
DX: N20.0 Calculus of kidney (principal); N39.0 Urinary tract infection, site not specified
CPT/HCPCS: 74176

== ENCOUNTER → 2022-06-07 | Outpatient (CLI) | payer MEDICARE, SELFPAY ==
--- NOTE | 2022-06-07 08:59 | RAD_ITS ---
EXAM: XR ABDOMEN, 1 VIEW CLINICAL INDICATION: STONE TECHNIQUE: Frontal supine view of the abdomen/pelvis. This report was created using [employer] report generation technology. COMPARISON: None. FINDINGS: LOWER THORAX: No acute pathology. GASTROINTESTINAL TRACT: Unremarkable. Non-obstructive. No bowel or stomach distention. ORGANS: Unremarkable as visualized. No organomegaly. No abnormal calcifications. BONES/JOINTS: No acute pathology. SOFT TISSUES: No acute pathology. RAD/Abdomen Single View IMPRESSION: Non-obstructive bowel gas pattern. Electronically Signed: Osbaldo Segundo MD at 5:56 EDT ,
== END | disposition home or self-care (01) ==
LOC: MTRAD 08:58
PROVIDERS: PCP Family Medicine; Referring Provider Urology; Visit Provider Urology
DX: N20.0 Calculus of kidney (principal)
CPT/HCPCS: 74018

== ENCOUNTER 2022-06-29 12:56 | Day surgery (SDC) | payer MEDICARE, SELFPAY ==
--- NOTE | 2022-06-29 13:04 | DCINST_ITS ---
Discharge Instructions Diet Discharge Diet: No restrictions Activity Discharge Activity: Return to Normal Activity Dressing / Incision Call your doctor if you observe: Fever of 101 or Higher, Inability to urinate and Inability to have a bowel movement Follow Up Care Please Follow Up With: Martine Gillette MD When: Call the office for appointment Test Results: Test results from this visit will be discussed in further detail at your follow- up appointment, if applicable. Discharge Plan Admission Attending Provider: Martine Gillette Primary Care Provider: Derian De Jesus Discharge Orders/Prescriptions Prescriptions: New fluconazole [Diflucan] 150 mg tablet 150 mg PO DAILY 2 Days Qty: 2 0RF oxycodone-acetaminophen [Percocet] 5-325 mg tablet 1 tab PO Q8H PRN (Reason: pain) 3 Days Qty: 10 0RF nystatin-triamcinolone 100,000-0.1 unit/gram-% ointment 1 applic topical BID 14 Days Qty: 30 0RF Continued cyanocobalamin (vitamin B-12) 1,000 MCG tablet, sublingual 1,000 mcg PO DAILY Label Comments: Supplement fluticasone propionate 1 SPRAY spray,suspension 2 sprays NARES DAILY Label Comments: allergies levothyroxine 137 MCG tablet 150 mcg PO DAILY ibrutinib 140 MG tablet 420 mg PO DAILY cephalexin 250 mg Capsule 250 mg PO QHS ascorbic acid (vitamin C) [Vitamin C] 500 mg Tablet,Chewable 500 mg PO DAILY albuterol sulfate [Ventolin HFA] 90 mcg/actuation Hfa Aerosol Inhaler 1 inh INHALATION Q6H PRN (Reason: SOB) Arnuity Ellipta 100 mcg/actuation Blister With Device 1 inh INHALATION DAILY Referrals / Follow Up: Derian De Jesus MD [Primary Care Provider] - Disposition Disposition (needs filled in before D/C Order can be placed): Home, Self Care
--- NOTE | 2022-06-29 13:05 | PCM.OPRPT ---
Problems Associated Problem List Diagnoses (1) Left renal stone: Report of Operation Date of Procedure: 06/29/22 Pre-Operative Diagnosis: Left renal calculus, urinary tract infections Post-Operative Diagnosis: Same Surgery/Procedure Performed:: Cystoscopy, left renal extracorporal shockwave lithotripsy Surgeon: Martine Gillette Type of Anesthesia: General Description of Procedure: The patient is a 72-year-old female with recurrent urinary tract infections found to have a left renal calculus. She now presents for definitive management of her stone as well as evaluation with cystoscopy under anesthesia. Informed consent was obtained. The patient was taken to the operating room and placed on the operating room table. Anesthesia monitored the head, neck, airway, IV access and vital signs throughout the case. Once anesthesia was appropriate ministered the patient was placed in dorsal lithotomy position was prepped and draped in usual sterile fashion. Pelvic examination revealed an external vaginal yeast infection, no evidence of pelvic organ prolapse, no pelvic mass and no palpable stool in the rectal vault. A digital rectal examination was not performed. The cystoscope was inserted through the urethra under direct visualization into the urinary bladder. Cystoscopic visualization of the bladder and urethral mucosa revealed no evidence of abnormality including mass, ulceration, erythema or foreign body. At this time the patient's bladder was emptied and the cystoscope was removed. She was repositioned on the operating room table. Her left renal calculus was identified and 3000 shocks were applied to the stone. It appeared to be well fragmented at the conclusion of the case. The patient was then awakened and taken to the recovery room in good condition. There were no complications during this procedure. Grafts/Implants Used: None Complications None Admit VTE Documentation VTE Present on Admission: Yes VTE Mechan Device Prophylaxis: SCD's VTE Pharm Prophylaxis ordered?: No Reason prophylaxis not ordered:: Treatment Not Indicated
[2022-06-29 13:25] VITALS: BP 146/85; PULSE 64; RESP 16; TEMP 36.7; O2SAT 97; BMI 33.1
[2022-06-29] MEDS: Lactated Ringers 1,000 ML 15 ML IV (13:29)
[2022-06-29] MEDS: Ciprofloxacin 400 MG/200 ML BAG 200 MG IV (15:09)
[2022-06-29 16:00] VITALS: BP 138/86; BP 146/85; PULSE 64; RESP 16; TEMP 36.4; O2SAT 92
[2022-06-29 16:25] VITALS: BP 144/78; BP 146/85; PULSE 61; RESP 16; TEMP 36.3; O2SAT 95
[2022-06-29 16:41] VITALS: BP 146/85
== END 2022-06-29 16:48 | disposition home or self-care (01) ==
LOC: SDC 12:56 → AC 12:58
PROVIDERS: PCP Family Medicine; Referring Provider Urology; Visit Provider Urology
PROC: (CPT 50590; principal; 2022-06-29 14:20)
DX: N20.0 Calculus of kidney (principal); N39.0 Urinary tract infection, site not specified; J45.909 Unspecified asthma, uncomplicated; E07.9 Disorder of thyroid, unspecified; Z98.51 Tubal ligation status; Z87.891 Personal history of nicotine dependence; Z99.89 Dependence on other enabling machines and devices; N39.46 Mixed incontinence; R35.0 Frequency of micturition; R35.1 Nocturia; N95.2 Postmenopausal atrophic vaginitis
CPT/HCPCS: 50590; 00873; J7120; J0744; J2405

== ENCOUNTER → 2022-07-11 | Outpatient (CLI) | payer MEDICARE, SELFPAY ==
--- NOTE | 2022-07-11 09:20 | RAD_ITS ---
STUDY: X-RAY - ABDOMEN/PELVIS REASON FOR EXAM: Female, 72 years old. KUB- RENAL CALC. TECHNIQUE: KUB COMPARISON: June 07, 2022 FINDINGS: Normal visualized lung bases. There is an unremarkable bowel gas pattern. There is no demonstrated free abdominal air. The visualized liver, spleen and kidneys are grossly normal in size and morphology. Tiny calcification in the left upper quadrant which may be consistent with renal calculus.. Normal visualized osseous structures. RAD/Abdomen Single View IMPRESSION: Nonspecific x-ray examination of the abdomen and pelvis. Possible tiny left renal calculus. If concern for renal obstruction ultrasound recommended Electronically Signed: Darvin Miller MD at 18:20 EDT ,
== END | disposition home or self-care (01) ==
LOC: MTRAD 09:14
PROVIDERS: PCP Family Medicine; Referring Provider Urology; Visit Provider Urology
DX: N20.0 Calculus of kidney (principal)
CPT/HCPCS: 74018

== ENCOUNTER 2022-11-02 06:41 | Day surgery (SDC) | payer MEDICARE, SELFPAY ==
[2022-11-02] VITALS (15 sets, daily range): BP systolic 76–119; BP diastolic 43–71; PULSE 58–63; RESP 14–17; TEMP 36.7–36.8; O2SAT 60–96; BMI 33.1
[2022-11-02] MEDS: Lactated Ringers 1,000 ML 15 ML IV (07:12)
[2022-11-02] MEDS: Vancomycin IV 1,000 MG/200 ML BAG 200 MG IV (07:12)
--- NOTE | 2022-11-02 08:37 | RAD_ITS ---
STUDY: X-RAY - PELVIS REASON FOR EXAM: Female, 72 years old. AXONICS STAGE 1. TECHNIQUE: 3 intraoperative digital documentation views of the pelvis. COMPARISON: CT of the abdomen and pelvis dated May 24, 2022. FINDINGS: 3 intraoperative digital documentation views show placement of stimulator with tip projecting over the right lower sacrum. RAD/Pelvis 1 or 2 Views IMPRESSION: Intraoperative digital documentation views as described. Electronically Signed: Yogesh Vick MD at 13:00 EDT ,
[2022-11-02] MEDS: Bupivacaine Mpf 0.5% 30 ML VIAL (08:47)
--- NOTE | 2022-11-02 10:01 | DCINST_ITS ---
Discharge Instructions Diet Discharge Diet: No restrictions Activity Discharge Activity: May Not Shower May resume sexual activity in: 4 weeks Dressing / Incision Call your doctor if your incision/area has: Continuous Slow Oozing, Sudden Increased Bleeding, Increased Pain/ Swelling, Increased Redness, Foul Smelling Discharge and Swelling at the incision site Call your doctor if you observe: Fever of 101 or Higher, Inability to urinate and Inability to have a bowel movement Suture Line Care: Avoid Pulling/Pushing and Avoid Pinching/Bending Change Dressing in: do not change dressing Cleanse incision/area with: Keep Dressing Clean & Dry Follow Up Care Please Follow Up With: Martine Gillette MD When: Appointment next week in the office Test Results: Test results from this visit will be discussed in further detail at your follow- up appointment, if applicable. Discharge Plan Admission Attending Provider: Martine Gillette Primary Care Provider: Derian De Jesus Discharge Orders/Prescriptions Prescriptions: New oxycodone-acetaminophen [Percocet] 5-325 mg tablet 1 tab PO Q8H PRN (Reason: pain) 3 Days Qty: 10 0RF Continued cyanocobalamin (vitamin B-12) 1,000 MCG tablet, sublingual 1,000 mcg PO DAILY Patient Comments: Supplement fluticasone propionate 1 SPRAY spray,suspension 2 sprays NARES DAILY Patient Comments: allergies levothyroxine 137 MCG tablet 150 mcg PO DAILY ibrutinib 140 MG tablet 420 mg PO DAILY ascorbic acid (vitamin C) [Vitamin C] 500 mg Tablet,Chewable 500 mg PO DAILY albuterol sulfate [Ventolin HFA] 90 mcg/actuation Hfa Aerosol Inhaler 1 inh INHALATION Q6H PRN (Reason: SOB) Arnuity Ellipta 100 mcg/actuation Blister With Device 1 inh INHALATION DAILY fluconazole [Diflucan] 150 mg tablet 150 mg PO DAILY 2 Days Qty: 2 0RF nystatin-triamcinolone 100,000-0.1 unit/gram-% ointment 1 applic topical BID 14 Days Qty: 30 0RF Referrals / Follow Up: Derian De Jesus MD [Primary Care Provider] - Disposition Disposition (needs filled in before D/C Order can be placed): Home, Self Care
--- NOTE | 2022-11-02 10:07 | PCM.OPRPT ---
Report of Operation Date of Procedure: 11/02/22 Pre-Operative Diagnosis: Urge incontinence, frequency, nocturia Post-Operative Diagnosis: Same Surgery/Procedure Performed:: Axonics stage I Surgeon: Martine Gillette Type of Anesthesia: MAC Estimated Blood Loss (mL): 5 cc Description of Procedure: The patient is a 72-year-old female with refractory urge incontinence, frequency and nocturia who presents for a stage I Axonics trial. Informed consent was obtained. The patient was taken to the operating room and placed in a prone position on the operating room table. She was appropriately secured to the table and padded. Anesthesia monitored the head, neck, airway, IV access and vital signs throughout the case. Once anesthesia was appropriately administered, the patient was prepped and draped in usual sterile fashion. Her anatomy and the sacral area was outlined using fluoroscopic visualization. Attempts for accessing the S3 foramen with good stimulation were made on both the right and left sides. The best stimulation pattern was ultimately achieved on the right. After the foramen was intubated with a needle, it was dilated and the lead was inserted under fluoroscopic visualization. All 4 leads received good responses from stimulation. The lead was then deployed and the pocket site was selected on the patient's left side. It was infiltrated with Marcaine and a small incision was then made. Hemostasis was achieved with cautery. The lead was tunneled into the pocket position where it was cleaned and inserted into the lead extension and secured using the torque wrench. The lead extension was then tunneled to the patient's right side where it was secured. The incisions were closed using 3-0 interrupted Vicryl, 4-0 Monocryl subcuticular closure followed by skin glue. The battery was attached to the lead extension and covered with an OpSite and cloth tape. The patient was then awakened and taken to the recovery room in good condition. There were no complications during this procedure. Grafts/Implants Used: Axonics lead and lead extension Complications None Admit VTE Documentation VTE Present on Admission: No VTE Mechan Device Prophylaxis: None VTE Pharm Prophylaxis ordered?: No Reason prophylaxis not ordered:: Treatment Not Indicated
== END 2022-11-02 11:43 | disposition home or self-care (01) ==
LOC: SDC 06:41 → AC 06:42
PROVIDERS: PCP Family Medicine; Referring Provider Urology; Visit Provider Urology
PROC: (CPT 64561; principal; 2022-11-02 08:10)
DX: N39.41 Urge incontinence (principal); J45.909 Unspecified asthma, uncomplicated; Z99.89 Dependence on other enabling machines and devices; Z87.440 Personal history of urinary (tract) infections; E07.9 Disorder of thyroid, unspecified; Z87.891 Personal history of nicotine dependence; R35.0 Frequency of micturition; R35.1 Nocturia; N39.0 Urinary tract infection, site not specified
CPT/HCPCS: 64561; 00300; 72170; 76000; J7120; J2405

== ENCOUNTER 2022-11-16 05:55 | Day surgery (SDC) | payer MEDICARE, SELFPAY ==
[2022-11-16] VITALS (7 sets, daily range): BP systolic 99–146; BP diastolic 71–82; PULSE 62–70; RESP 14–18; TEMP 36.2–36.8; O2SAT 92–96; BMI 33.6
[2022-11-16] MEDS: Vancomycin IV 1,000 MG/200 ML BAG 200 MG IV (06:26)
[2022-11-16] MEDS: Lactated Ringers 1,000 ML 15 ML IV (06:26)
[2022-11-16] MEDS: Bupivacaine Mpf 0.5% 30 ML VIAL (07:43)
--- NOTE | 2022-11-16 08:13 | DCINST_ITS ---
Discharge Instructions Diet Discharge Diet: No restrictions Activity Discharge Activity: May Shower (tomorrow) May resume sexual activity in: 2 weeks Dressing / Incision Call your doctor if your incision/area has: Continuous Slow Oozing, Sudden Increased Bleeding, Increased Pain/ Swelling, Increased Redness, Foul Smelling Discharge and Swelling at the incision site Call your doctor if you observe: Fever of 101 or Higher, Inability to urinate and Inability to have a bowel movement Suture Line Care: Avoid Pulling/Pushing and Avoid Pinching/Bending Remove Dressing in: leave until fall off (do not pull off the glue) Follow Up Care Please Follow Up With: Martine Gillette MD When: The office will call the patient for an appointment in 4 weeks Test Results: Test results from this visit will be discussed in further detail at your follow- up appointment, if applicable. Discharge Plan Admission Attending Provider: Martine Gillette Primary Care Provider: Derian De Jesus Discharge Orders/Prescriptions Prescriptions: New oxycodone-acetaminophen [Percocet] 5-325 mg tablet 1 tab PO Q8H PRN (Reason: pain) 2 Days Qty: 6 0RF nitrofurantoin monohyd/m-cryst [Macrobid] 100 mg capsule 100 mg PO BID Qty: 6 0RF Rx Instructions: must administer with a meal/food Continued cyanocobalamin (vitamin B-12) 1,000 MCG tablet, sublingual 1,000 mcg PO DAILY Patient Comments: Supplement fluticasone propionate 1 SPRAY spray,suspension 2 sprays NARES DAILY Patient Comments: allergies levothyroxine 137 MCG tablet 150 mcg PO DAILY ibrutinib 140 MG tablet 420 mg PO DAILY ascorbic acid (vitamin C) [Vitamin C] 500 mg Tablet,Chewable 500 mg PO DAILY albuterol sulfate [Ventolin HFA] 90 mcg/actuation Hfa Aerosol Inhaler 1 inh INHALATION Q6H PRN (Reason: SOB) Arnuity Ellipta 100 mcg/actuation Blister With Device 1 inh INHALATION DAILY fluconazole [Diflucan] 150 mg tablet 150 mg PO DAILY 2 Days Qty: 2 0RF nystatin-triamcinolone 100,000-0.1 unit/gram-% ointment 1 applic topical BID 14 Days Qty: 30 0RF oxycodone-acetaminophen [Percocet] 5-325 mg tablet 1 tab PO Q8H PRN (Reason: pain) 3 Days Qty: 10 0RF Referrals / Follow Up: Derian De Jesus MD [Primary Care Provider] - Disposition Disposition (needs filled in before D/C Order can be placed): Home, Self Care
--- NOTE | 2022-11-16 08:16 | PCM.OPRPT ---
Report of Operation Date of Procedure: 11/16/22 Pre-Operative Diagnosis: Urge incontinence Post-Operative Diagnosis: Same Surgery/Procedure Performed:: Axonics stage II Surgeon: Martine Gillette Type of Anesthesia: MAC Description of Procedure: The patient is a 72-year-old female with a successful stage I Axonics procedure now presents for implantation of her battery. Informed consent was obtained. The patient was taken to the operating room and placed in a prone position on the operating room table. She was appropriately padded and secured to the table. Anesthesia monitored the head, neck, airway, IV access and vital signs throughout the case. Once anesthesia was appropriately administered, the patient was prepped and draped in usual sterile fashion. The dressing and adhesive glue was removed prior to the prep. At this time, the area surrounding the incision over the pocket site was carefully infiltrated with Marcaine. The incision was then opened using a knife and hemostats. Care was taken to avoid any injury to the lead. The lead extension was brought into the field and removed using the torque wrench. The lead extension was then cut and pulled from below the drapes. The incision was enlarged using a knife and Bovie cautery for hemostasis. The pocket site was enlarged with blunt dissection. The pocket was then irrigated. The lead was cleaned and dried and inserted into the battery and secured using the torque wrench. The battery was then placed into the pocket site and impedances were found to be appropriate. At this time the pocket was closed using 3-0 Vicryl interrupted suture followed by 4-0 Monocryl subcuticular closure and Dermabond. The patient was then awakened and taken to the recovery room in good condition. There were no complications during this procedure. Grafts/Implants Used: Axonics battery Complications None Admit VTE Documentation VTE Mechan Device Prophylaxis: SCD's VTE Pharm Prophylaxis ordered?: No Reason prophylaxis not ordered:: Treatment Not Indicated
== END 2022-11-16 09:25 | disposition home or self-care (01) ==
LOC: SDC 05:56 → AC 05:58
PROVIDERS: PCP Family Medicine; Referring Provider Urology; Visit Provider Urology
PROC: (CPT 64590; principal; 2022-11-16 07:20)
DX: N39.41 Urge incontinence (principal); J44.9 Chronic obstructive pulmonary disease, unspecified; J45.909 Unspecified asthma, uncomplicated; Z99.89 Dependence on other enabling machines and devices; Z87.891 Personal history of nicotine dependence; R35.0 Frequency of micturition; R35.1 Nocturia; R23.3 Spontaneous ecchymoses; Z87.440 Personal history of urinary (tract) infections; Z87.442 Personal history of urinary calculi; E07.9 Disorder of thyroid, unspecified
CPT/HCPCS: 64590; 00300; J7120; J2405

== ENCOUNTER → 2023-04-09 | Outpatient (CLI) | payer MEDICARE, SELFPAY ==
--- NOTE | 2023-04-09 09:40 | RAD_ITS ---
STUDY: X-RAY - LUMBAR SPINE REASON FOR EXAM: Female, 72 years old. M51.36 M51.37 TECHNIQUE: 2 view(s) of the lumbar spine were obtained. COMPARISON: May 24, 2022 CT scan bone windows for abdomen and pelvis FINDINGS: Normal lumbar lordosis. There is no substantial scoliosis. There is a normal alignment of the vertebrae. There is degenerative change of the lumbar spine. There is disc space narrowing L4-L5 L5-S1. There is visualized facet arthropathy. There is no significant evidence of acute loss of height or alignment or significant change since prior study. There is a low lying neurostimulator device overlying the left side of the pelvis with a lead extending towards the right to midline sacrum. There is moderate stool within the colon. RAD/Lumbar Spine 2 or 3 Views IMPRESSION: Degenerative change of the lumbar spine. No visualized acute loss of height or alignment. Electronically Signed: Rasheeda Murray MD at 23:56 EST Reading Location ID and State: [facility] / [place] Tel , Service support ,
== END | disposition home or self-care (01) ==
LOC: RAD 09:32
PROVIDERS: PCP Family Medicine; Referring Provider Anesthesiology Pain Medicine; Visit Provider Anesthesiology Pain Medicine
DX: M51.36 Other intervertebral disc degeneration, lumbar region (principal); M51.37 Other intervertebral disc degeneration, lumbosacral region
CPT/HCPCS: 72100

== ENCOUNTER 2023-08-11 19:07 | Emergency (ER) | payer MEDICARE, SELFPAY ==
[2023-08-11 19:07] VITALS: BP 133/101; PULSE 113; RESP 18; TEMP 36.6; O2SAT 98; BMI 33.0
--- NOTE | 2023-08-11 19:39 | EX.ED.DYSGE1 ---
HPI <FILOMENA Delcid - Last Filed: 08/11/23 22:05> History of Present Illness Chief Complaint: Abd Pain Narrative Narrative: Patient is a 73-year-old female with history of GERD, asthma, hypothyroidism, history of kidney stones presents to the emergency department for not feeling well for the last 3 weeks. Patient states has been having intermittent abdominal pain, patient states that for the last 3 days has been having blood in her stool as well as some mucus. Patient does have pain more to the left lower abdomen. She denies any history of colitis, diverticulitis. Patient dates she does feel intermittent shortness of breath however this is been ongoing for several years when the weather changes. She states that this time she is not feeling short of breath. She has been on multiple antibiotics secondary to frequent UTIs. She finished an antibiotic 1.5 weeks ago. Patient dates she is using the restroom 8-10 times per day to have diarrhea. However states the diarrhea is a scant amount and its mostly mucus. PFS <FILOMENA Delcid - Last Filed: 08/11/23 22:05> [facility] Medical History (Updated 08/11/23 @ 23:[address] Meeta Darden MD) Urge incontinence Left renal stone Wears glasses Cancer Alcohol use Thyroid disease Overactive bladder Arthritis Anemia Easy bruising Back pain CPAP (continuous positive airway pressure) dependence Former smoker COPD (chronic obstructive pulmonary disease) Asthma Pain History of pain when walking History of echocardiogram Home Medications ?Medication ?Instructions ?Recorded ?Last Taken ?Type cyanocobalamin (vitamin B-12) 1,000 mcg PO DAILY 04/19/14 11/01/22 History 1,000 mcg sublingual tablet fluticasone propionate 50 2 sprays DAILY 04/23/16 11/01/22 History mcg/actuation nasal spray,suspension ibrutinib 140 mg tablet 420 mg PO DAILY 03/27/20 11/12/22 History levothyroxine 137 mcg tablet 150 mcg PO DAILY 03/27/20 11/16/22 History albuterol sulfate 90 mcg/actuation 1 inh inhalation Q6H PRN SOB 06/22/22 11/16/22 History aerosol inhaler (Ventolin HFA) ascorbic acid (vitamin C) 500 mg 500 mg PO DAILY 06/22/22 11/01/22 History chewable tablet (Vitamin C) fluticasone furoate 100 1 inh inhalation DAILY 06/22/22 11/16/22 History mcg/actuation blister powder for inhalation (Arnuity Ellipta) fluconazole 150 mg tablet 150 mg PO DAILY 2 days #2 tabs 06/29/22 Unknown Rx (Diflucan) nystatin-triamcinolone 100,000 1 applic topical BID 14 days #30 06/29/22 11/01/22 Rx unit/gram-0.1 % topical ointment grams oxycodone-acetaminophen 5 mg-325 1 tab PO Q8H PRN pain 3 days #10 11/02/22 Unknown Rx mg tablet (Percocet) tabs nitrofurantoin 100 mg PO BID #6 caps 11/16/22 Unknown Rx monohydrate/macrocrystals 100 mg capsule (Macrobid) oxycodone-acetaminophen 5 mg-325 1 tab PO Q8H PRN pain 2 days #6 11/16/22 Unknown Rx mg tablet (Percocet) tabs vancomycin 125 mg capsule 125 mg PO Q6H 10 days #40 caps 08/11/23 Unknown Rx Allergy/AdvReac Type Severity Reaction Status Date / Time sulfamethoxazole (From Allergy Intermediate Angioedema Verified 08/11/23 19:07 Bactrim) trimethoprim (From Bactrim) Allergy Intermediate Angioedema Verified 08/11/23 19:07 amoxicillin (Amoxicillin) Allergy Anaphylaxis Verified 08/11/23 19:07 articaine Allergy Swelling Verified 08/11/23 19:07 lidocaine Allergy redness/itc Verified 08/11/23 19:07 randa raloxifene (From Evista) Allergy Swelling Verified 08/11/23 19:07 morphine AdvReac Nausea/Vom/ Verified 08/11/23 19:07 Diarrhea Surgical History Hx of colonoscopy Hx of tubal ligation Hx of lithotripsy History of tonsillectomy and adenoidectomy Hx of total knee arthroplasty Social History Smoking Status: Former smoker ROS <FILOMENA Delcid - Last Filed: 08/11/23 22:05> ROS ED ROS Narrative Constitutional: Negative for fever, chills, weight loss, weakness Eyes: Negative for vision loss, vision change, double vision ENT: Negative for any sore throat, ear pain, congestion Cardiovascular: Negative for any chest pain, tightness, palpitations Respiratory: Negative for any cough, sputum production, hemoptysis, dyspnea, dyspnea on exertion, orthopnea Gastrointestinal: Negative for any constipation, blood in vomit. Positive for abdominal pain, left lower quadrant, nausea, vomiting, diarrhea, blood in stool : Negative for any urinary frequency, dysuria, retention, blood in urine Muscle skeletal: Negative for any neck pain, back pain Neurological: Negative for any headache, syncope, dizziness Skin: Negative for any rashes, itching, abrasions, lacerations Psychiatric: Negative for any depression, anxiety, stress, suicidal ideation, homicidal ideation Hematologic: Negative for any excessive bruising, easy bleeding EXAM <FILOMENA Delcid - Last Filed: 08/11/23 22:05> Physical Exam Narrative Exam Narrative: Vital signs reviewed. HEET: Head normocephalic atraumatic, TMs clear bilaterally. Posterior pharynx is clear, moist mucous membranes. Nares clear bilaterally. Neck: Supple with no lymphadenopathy or tenderness. No signs of meningismus. Cardiac: Regular rate and rhythm no murmurs gallops or rubs, equal peripheral pulses bilaterally. Respiratory: Lungs clear to auscultation bilaterally. No chest tenderness. Abdomen: Soft, nondistended. No abdominal bruit or pulsatile masses. No hepatosplenomegaly. Tenderness to left lower abdomen Extremities: No peripheral edema, no signs of gross trauma or deformity. Active full range of motion of all extremities. Neuro: Cranial nerves II through XII intact, no focal neurological deficits. Skin: Clean dry and intact with no rash, purpura, petechiae, vesicles or pustules. Backs/flank: No CVA tenderness, no midline spinal tenderness, no deformity. Psych: Normal mood and affect. No SI, HI or acute psychosis. Const Vital Signs: 08/11/23 19:07 08/11/23 21:07 08/11/23 23:00 Temperature 97.9 F Temperature Source Temporal Pulse Rate 113 H 105 H 89 Respiratory Rate 18 26 H 20 H Blood Pressure 133/101 H 124/74 H 133/76 H Blood Pressure Mean 111 90 95 Pulse Ox 98 96 Oxygen Delivery Method Room Air Room Air Room Air <Dr. Meeta Darden MD - Last Filed: 08/11/23 23:42> Physical Exam Const Vital Signs: 08/11/23 19:07 08/11/23 21:07 08/11/23 23:00 Temperature 97.9 F Temperature Source Temporal Pulse Rate 113 H 105 H 89 Respiratory Rate 18 26 H 20 H Blood Pressure 133/101 H 124/74 H 133/76 H Blood Pressure Mean 111 90 95 Pulse Ox 98 96 Oxygen Delivery Method Room Air Room Air Room Air [facility] <FILOMENA Delcid - Last Filed: 08/11/23 22:05> [facility] Lab Data Labs: Laboratory Results - last 24 hr 08/11/23 08/11/23 19:50 20:35 WBC 16.5 H RBC 5.28 Hgb 16.0 H Hct 48.4 H MCV 91.7 MCH 30.3 MCHC 33.1 RDW Std Deviation 49.7 H RDW Coeff of Kayce 14.6 Plt Count 267 MPV 12.2 H Immature Gran % (Auto) 0.400 Neut % (Auto) 87.5 H Lymph % (Auto) 4.3 L Greene % (Auto) 7.5 Eos % (Auto) 0.1 Baso % (Auto) 0.2 Absolute Neuts (auto) 14.4 H Absolute Lymphs (auto) 0.71 L Nucleated RBC % 0 Sodium 135 L Potassium 3.9 Chloride 106 Carbon Dioxide 21.0 Anion Gap 8 BUN 17 Creatinine 1.06 H Estim Creat Clear Calc 57.79 Est GFR (MDRD) Af Amer 66 Est GFR (MDRD) Non-Af 54 L BUN/Creatinine Ratio 16.0 Glucose 189 H Calcium 8.9 Total Bilirubin 0.70 AST 33 ALT 63 H Alkaline Phosphatase 95 Total Protein 7.0 Albumin 3.3 Globulin 3.7 Albumin/Globulin Ratio 0.9 Lipase 21 Urine Color Yellow Urine Clarity Sl. Cloudy Urine pH 7.0 Ur Specific Supply 1.010 Urine Protein 30 H Urine Glucose (UA) Normal Urine Ketones Negative Urine Occult Blood 150 H Urine Nitrite Negative Urine Bilirubin Negative Urine Urobilinogen 1 H Ur Leukocyte Esterase 100 H Urine RBC 5-10 SEEN Urine WBC 5-10 SEEN Ur Squamous Epith Cells 0 SEEN Urine Bacteria RARE Urine Mucus 0 SEEN Radiography Diagnostic Testing: Clinical Impression(s) from Imaging Studies Abdomen/Pelvis CT 08/11/23 20:04 IMPRESSION: 1. Sigmoid colitis of infectious or inflammatory etiology. No complications. 2. Redemonstration of punctate nonobstructing renal calyceal calculi involving the right upper renal pole. Electronically Signed: Sal Motta MD at 23:22 EDT , Treatment and Re-Evaluation :: Differential diagnosis includes however is not limited to: Diverticulitis, colitis, other inflammatory bowel disease, C. difficile, viral gastroenteritis Patient appears to be in no obvious respiratory distress vital signs are stable. Patient presents to the emerged part with complaints of left lower abdominal pain, mucosal diarrhea with blood. Patient will receive a full abdominal workup with CBC, CMP, lipase, CT scan of the abdomen pelvis with IV contrast. IV fluids, IV Zofran will be ordered. Stool culture was ordered for C. difficile secondary to the recent antibiotic use. Urinalysis will be obtained to ensure there is no infection. Patient resting comfortably on reevaluation, patient's laboratory values show leukocytosis white blood count of 16.5, hemoglobin 16, chemistries show sodium 135, creatinine 1.06 are slightly elevated, glucose 189, ALT 63, lipase was negative. Currently waiting for CT scan on abdomen pelvis with IV and p.o. contrast. <Dr. Meeta Darden MD - Last Filed: 08/11/23 23:42> [facility] Lab Data Labs: Laboratory Results - last 24 hr 08/11/23 08/11/23 19:50 20:35 WBC 16.5 H RBC 5.28 Hgb 16.0 H Hct 48.4 H MCV 91.7 MCH 30.3 MCHC 33.1 RDW Std Deviation 49.7 H RDW Coeff of Kayce 14.6 Plt Count 267 MPV 12.2 H Immature Gran % (Auto) 0.400 Neut % (Auto) 87.5 H Lymph % (Auto) 4.3 L Greene % (Auto) 7.5 Eos % (Auto) 0.1 Baso % (Auto) 0.2 Absolute Neuts (auto) 14.4 H Absolute Lymphs (auto) 0.71 L Nucleated RBC % 0 Sodium 135 L Potassium 3.9 Chloride 106 Carbon Dioxide 21.0 Anion Gap 8 BUN 17 Creatinine 1.06 H Estim Creat Clear Calc 57.79 Est GFR (MDRD) Af Amer 66 Est GFR (MDRD) Non-Af 54 L BUN/Creatinine Ratio 16.0 Glucose 189 H Calcium 8.9 Total Bilirubin 0.70 AST 33 ALT 63 H Alkaline Phosphatase 95 Total Protein 7.0 Albumin 3.3 Globulin 3.7 Albumin/Globulin Ratio 0.9 Lipase 21 Urine Color Yellow Urine Clarity Sl. Cloudy Urine pH 7.0 Ur Specific Supply 1.010 Urine Protein 30 H Urine Glucose (UA) Normal Urine Ketones Negative Urine Occult Blood 150 H Urine Nitrite Negative Urine Bilirubin Negative Urine Urobilinogen 1 H Ur Leukocyte Esterase 100 H Urine RBC 5-10 SEEN Urine WBC 5-10 SEEN Ur Squamous Epith Cells 0 SEEN Urine Bacteria RARE Urine Mucus 0 SEEN Radiography Diagnostic Testing: Clinical Impression(s) from Imaging Studies Abdomen/Pelvis CT 08/11/23 20:04 IMPRESSION: 1. Sigmoid colitis of infectious or inflammatory etiology. No complications. 2. Redemonstration of punctate nonobstructing renal calyceal calculi involving the right upper renal pole. Electronically Signed: Sal Motta MD at 23:22 EDT , Treatment and Re-Evaluation :: Differential diagnosis includes however is not limited to: Diverticulitis, colitis, other inflammatory bowel disease, C. difficile, viral gastroenteritis Patient appears to be in no obvious respiratory distress vital signs are stable. Patient presents to the emerged part with complaints of left lower abdominal pain, mucosal diarrhea with blood. Patient will receive a full abdominal workup with CBC, CMP, lipase, CT scan of the abdomen pelvis with IV contrast. IV fluids, IV Zofran will be ordered. Stool culture was ordered for C. difficile secondary to the recent antibiotic use. Urinalysis will be obtained to ensure there is no infection. Patient resting comfortably on reevaluation, patient's laboratory values show leukocytosis white blood count of 16.5, hemoglobin 16, chemistries show sodium 135, creatinine 1.06 are slightly elevated, glucose 189, ALT 63, lipase was negative. Currently waiting for CT scan on abdomen pelvis with IV and p.o. contrast. Patient seen and evaluated with [facility]. I personally interviewed and examined the patient. I was involved in all aspects of patient's orders, interpretation of results, and treatment. Patient presents with 2 to 3 weeks of lower abdominal cramping and mucousy stool. She states now she just passing mucus with some blood. She has not measured any fever. She does report having colonoscopies in the past with no noted significant findings. She denies history of diverticulitis. Patient sitting upright in bed no acute distress. Nontoxic-appearing. Head and neck examination unremarkable. Heart is regular rate and rhythm. Lung sounds are clear. Abdomen is soft with minimal tenderness in the lower abdomen. No guarding or rebound. CBC reveals a white count of 16.5 with 87% neutrophils. Hemoglobin is slightly concentrated at 16. Chemistry studies are unremarkable. LFTs and lipase are normal. Urinalysis reveals 5-10 white cells, 5-10 red cells, and rare bacteria. No nitrites are noted. Stool was sent for C. difficile which did return back positive for both antigen and the toxin. CT scan of the abdomen pelvis with p.o. and IV contrast is obtained and reveals evidence of sigmoid colitis of infectious or inflammatory etiology. No complications. I went back to talk to the patient about her test results. She had eloped from the emergency room. Nursing staff called the patient and relayed her findings. She would like her prescription sent to [facility] pharmacy. I will send that prescription into night and she can pick it up in the morning. Discharge Plan Triage Chief Complaint: Abd Pain ED Midlevel Provider: Juan José Cedeno ED Provider: Meeta Darden Dx/Rx/DC Orders Clinical Impression: C. difficile colitis Prescriptions: New vancomycin 125 mg capsule 125 mg PO Q6H 10 Days Qty: 40 0RF No Action cyanocobalamin (vitamin B-12) 1,000 MCG tablet, sublingual 1,000 mcg PO DAILY Patient Comments: Supplement fluticasone propionate 1 SPRAY spray,suspension 2 sprays NARES DAILY Patient Comments: allergies levothyroxine 137 MCG tablet 150 mcg PO DAILY ibrutinib 140 MG tablet 420 mg PO DAILY ascorbic acid (vitamin C) [Vitamin C] 500 mg Tablet,Chewable 500 mg PO DAILY albuterol sulfate [Ventolin HFA] 90 mcg/actuation Hfa Aerosol Inhaler 1 inh INHALATION Q6H PRN (Reason: SOB) Arnuity Ellipta 100 mcg/actuation Blister With Device 1 inh INHALATION DAILY fluconazole [Diflucan] 150 mg tablet 150 mg PO DAILY 2 Days Qty: 2 0RF nystatin-triamcinolone 100,000-0.1 unit/gram-% ointment 1 applic topical BID 14 Days Qty: 30 0RF oxycodone-acetaminophen [Percocet] 5-325 mg tablet 1 tab PO Q8H PRN (Reason: pain) 3 Days Qty: 10 0RF oxycodone-acetaminophen [Percocet] 5-325 mg tablet 1 tab PO Q8H PRN (Reason: pain) 2 Days Qty: 6 0RF nitrofurantoin monohyd/m-cryst [Macrobid] 100 mg capsule 100 mg PO BID Qty: 6 0RF Rx Instructions: must administer with a meal/food Primary Care Provider: Derian De Jesus Referrals: Derian De Jesus MD [Primary Care Provider] - Print Language: Ghanaian Disposition Disposition: Elopement
[2023-08-11] MEDS: Ondansetron 4 MG/2 ML Vial IV (19:46)
[2023-08-11] MEDS: 0.9% Normal Saline (1000mL) 1,000 ML 999 ML IV (19:46)
[2023-08-11 20:02] LABS: Absolute Lymphocyte Count 0.71 X10^3/uL (0.83-4.51); Absolute Neutrophil Count 14.4 X10^3/uL (2.0-7.7); Basophil# 0.04 X10^3/uL; Basophil% 0.2 % (0-1); Eosinophil# 0.01 X10^3/uL; Eosinophils% 0.1 % (0-5); Hematocrit 48.4 % (37-47); Lymphocyte # 0.71 X10^3/ul (0.83-4.51); Lymphocyte % 4.3 % (19-41); Mean Corp Hgb Conc 33.1 g/dL (32-36); Mean Corpuscular Hgb 30.3 pg (27.0-32.0); Mean Corpuscular Volume 91.7 fL (81-99); Mean Platelet Vol. 12.2 fl (6.2-12.0); Monocyte# 1.24 X10^3/uL; Monocyte% 7.5 % (0-10); NRBC Flagged by Analyzer 0 % (0-5); Neutrophil # 14.43 X10^3/uL (2.7-7.7); Neutrophil % 87.5 % (47-70); Platelet Count 267 K/mm3 (150-450); RBC Distribution Width CV 14.6 % (11.6-14.6); RBC Distribution Width SD 49.7 fl (35.1-43.9); Red Blood Count 5.28 M/mm3 (4.2-5.4); White Blood Count 16.5 K/mm3 (4.4-11.0)
--- NOTE | 2023-08-11 20:04 | CT_ITS ---
EXAM: CT ABDOMEN AND PELVIS WITH INTRAVENOUS CONTRAST CLINICAL INDICATION: lower abdominal pain -- IV PO Contrast TECHNIQUE: Helically acquired images were obtained of the abdomen and pelvis with intravenous contrast. CTDIvol = ( 16.71 ) mGy, DLP = ( 1320.01 ) mGycm This CT exam was performed using one or more of the following dose reduction techniques: automated exposure control, adjustment of the mA and/or kV according to patient size, and/or use of iterative reconstruction technique. CONTRAST: IV 100mL Isovue-370 COMPARISON: May 24, 2022 FINDINGS: LOWER THORAX: Partial atelectasis at the left lower lobe with elevated left hemidiaphragm. No cardiomegaly. No significant pericardial effusion. ABDOMEN: LIVER: Unremarkable. Homogeneous. No focal mass. GALLBLADDER AND BILE DUCTS: Cholelithiasis without acute cholecystitis. No intra- or extrahepatic biliary ductal dilation. PANCREAS: Unremarkable. No focal cystic or solid mass. SPLEEN: Unremarkable. Normal size without focal cystic or solid mass. ADRENALS: Unremarkable. No nodules. KIDNEYS AND URETERS: Punctate nonobstructing calyceal calculi at the upper pole of the right kidney. Renal sinus region cysts bilaterally, left greater than right. Small right renal cyst of the left lower renal pole. STOMACH AND BOWEL: Circumferential thickening of the wall of the sigmoid colon is concerning for colitis of infectious or inflammatory etiology. No stomach or bowel distention. PELVIS: APPENDIX: No evidence of acute appendicitis. BLADDER: Unremarkable. REPRODUCTIVE: Unremarkable as visualized. No mass. ABDOMEN and PELVIS: INTRAPERITONEAL SPACE: Unremarkable. No ascites or other fluid collection. No free air. BONES/JOINTS: Unremarkable. No suspicious lytic or blastic abnormality. SOFT TISSUES: Unremarkable. No discrete abdominal or pelvic wall hernia. VASCULATURE: Dilated central pulmonary arteries suggest pulmonary hypertension. LYMPH NODES: Unremarkable. No enlarged lymph nodes. CT/Abdomen/Pelvis WITH Contrast IMPRESSION: 1. Sigmoid colitis of infectious or inflammatory etiology. No complications. 2. Redemonstration of punctate nonobstructing renal calyceal calculi involving the right upper renal pole. Electronically Signed: Sal Motta MD at 23:22 EDT ,
[2023-08-11 20:25] LABS: ALB/GLOB Ratio 0.9 RATIO (0.9-2.4); AST(SGOT) 33 U/L (15-37); Alanine Aminotransfer ALT/SGPT 63 U/L (13-56); Albumin, Serum 3.3 g/dL (3.2-5.0); Alkaline Phosphatase 95 U/L (45-117); Anion Gap 8 (5-15); BUN 17 mg/dL (7-18); Calcium,Total 8.9 mg/dL (8.5-10.1); Chloride 106 mmol/L (98-107); Creatinine, Serum 1.06 mg/dL (0.55-1.02); EST Glomerular Filtration Rate 54 mL/min (>60); Est Glom Filt Rate - Afr Amer 66 mL/min (>60); Estimated Creatinine Clearance 57.79 ml/min; Globulin 3.7 g/dL (2.2-4.2); Glucose 189 mg/dL (74-106); Lipase 21 U/L (13-75); Potassium 3.9 mmol/L (3.5-5.1); Sodium Level 135 mmol/L (136-145)
[2023-08-11 20:43] LABS: Mucous, Urine 0 SEEN /hpf (<or=2+); Squamous Epithelial Cells - UA 0 SEEN /hpf (5-10)
[2023-08-11 20:45] LABS: Color, Urine Yellow (Yellow); Glucose, Dipstick Normal (Normal); Ketone-Dipstick Negative (Negative); Leukocyte Esterase-Dipstick 100 /ul (Negative); Nitrite-Dipstick Negative (Negative); Occult Blood-Urine 150 /ul (Negative); Protein-Dipstick 30 mg/dl (Negative); Urine Bilirubin Dipstick Negative (Negative); Urine Clarity Sl. Cloudy (Clear); Urine Urobilinogen 1 mg/dl (Normal)
[2023-08-11 21:02] LABS: Red Blood Cells-Urine 5-10 SEEN /hpf (0-5); White Blood Cells 5-10 SEEN /hpf (0-5)
[2023-08-11 21:03] LABS: Bacteria RARE /hpf (None Seen)
[2023-08-11 21:07] VITALS: BP 124/74; PULSE 105; RESP 26
[2023-08-11 23:00] VITALS: BP 133/76; PULSE 89; RESP 20; O2SAT 96
--- NOTE | 2023-08-11 23:38 | ED.RN ---
UPon MD rouding on patient, pt not in room. This RN called patient and she left, states that she took her own IV out. MD wanted to know where she would like script sent to treat cdiff, and she would like sent to [facility].
== END 2023-08-11 23:15 | disposition left against medical advice (07) ==
PROVIDERS: Nurse Practitioner; Emergency Provider Emergency Medicine; PCP Family Medicine; Visit Provider Emergency Medicine
DX: A04.72 Enterocolitis due to Clostridium difficile, not specified as recurrent (principal); Z87.891 Personal history of nicotine dependence; R10.32 Left lower quadrant pain; K21.9 Gastro-esophageal reflux disease without esophagitis; E03.9 Hypothyroidism, unspecified; Z79.899 Other long term (current) drug therapy
CPT/HCPCS: 74177; 80053; 81001; 83690; 85025; 87493; 96361; 96374; 99282; J7030; Q9967; A4216; J2405

== ENCOUNTER 2023-10-15 08:26 | Emergency (ER) | payer MEDICARE, SELFPAY ==
[2023-10-15 08:27] VITALS: PULSE 60; RESP 17; TEMP 35.8; O2SAT 97
[2023-10-15 08:31] VITALS: BP 147/98
--- NOTE | 2023-10-15 08:49 | EKG12_ITS ---
Test Reason : BACK PAIN Blood Pressure : / mmHG Vent. Rate : 058 BPM Atrial Rate : 058 BPM P-R Int : 174 ms QRS Dur : 088 ms QT Int : 428 ms P-R-T Axes : 043 -23 005 degrees QTc Int : 420 ms Sinus bradycardia Otherwise normal ECG Confirmed by Osbaldo Moscoso ([id number]), graphics editor HARDEEP FRANKS ([id number]) on 10/16/2023 2:05:00 PM Referred By: Confirmed By:Osbaldo Moscoso
--- NOTE | 2023-10-15 08:49 | CT_ITS ---
STUDY: CT ABDOMEN AND PELVIS WITH CONTRAST REASON FOR EXAM: Female, 73 years old. Hx of kidney stones. Right-sided flank pain. RADIATION DOSAGE (If Supplied By Facility): CTDIvol = ( 18.34 ) mGy, DLP = ( 2699.79 ) mGycm TECHNIQUE: Transaxial images were obtained from the dome of the diaphragm to the symphysis pubis without oral contrast. IV 100mL Isovue-370 was administered. Sagittal and coronal images were reconstructed. Individualized dose optimization techniques were used for this CT. COMPARISON: Comparison is made with prior study dated August 11, 2023. FINDINGS: Mild degree of linear markings at the lung bases slightly worse on the left side suggestive of bibasilar atelectasis. The visualized portions of the heart are within normal limits. There is decreased attenuation of the liver consistent with steatosis. There is a solitary gallstone. Normal spleen. Normal pancreas. Normal bilateral adrenal glands. Once again, there is evidence of bilateral parapelvic cysts. Stable 1.4 cm cortical cyst in the mid posterior aspect of the left kidney. Normal visualized stomach. Normal small intestine. There are scattered colonic diverticula consistent with diverticulosis. The appendix is visualized and appears normal. There is scattered atherosclerotic calcification of the abdominal aorta, without a demonstrated aneurysm. Normal inferior vena cava. Normal retroperitoneum. Normal urinary bladder. Small inguinal hernias containing fat. There are degenerative changes of the visualized lumbar spine. CT/Abdomen/Pelvis W IV Cont ONLY IMPRESSION: Stable bilateral parapelvic renal cysts and left cortical renal cyst. There is no evidence of ureteral obstruction at this time. Sigmoid diverticulosis. Bibasilar atelectasis worse on the left side. Small left inguinal hernia. Solitary gallstone. Electronically Signed: Arpit Salazar MD at 10:35 EDT ,
--- NOTE | 2023-10-15 08:59 | EX.ED.DYSGE1 ---
HPI History of Present Illness Chief Complaint: Flank Pain Narrative Narrative: Patient is a 73-year-old female with a past medical history of nephrolithiasis, lymphoma, COPD who presents to the emergency department the chief complaint of back pain on the right side. Patient states that Sunday after cough she noted some soreness in her back that had progressively worsened through the weekend and into today prompting her to come here for further evaluation management. Patient states that she played several rounds of golf through the weekend even after the pain began on Sunday. Patient states that this does feel like a kidney stone for her. She noted that she did have some blood in her urine over the weekend as well which she states periodically will happen with a kidney stone for her. She states that she has been peeing normally for self and having normal bowel movements. Patient denies any falls or trauma. [facility] Medical History Urge incontinence Left renal stone Wears glasses Cancer Alcohol use Thyroid disease Overactive bladder Arthritis Anemia Easy bruising Back pain CPAP (continuous positive airway pressure) dependence Former smoker COPD (chronic obstructive pulmonary disease) Asthma Pain History of pain when walking History of echocardiogram Home Medications ?Medication ?Instructions ?Recorded ?Last Taken ?Type cyanocobalamin (vitamin B-12) 1,000 mcg PO DAILY 04/19/14 11/01/22 History 1,000 mcg sublingual tablet fluticasone propionate 50 2 sprays DAILY 04/23/16 11/01/22 History mcg/actuation nasal spray,suspension ibrutinib 140 mg tablet 420 mg PO DAILY 03/27/20 11/12/22 History levothyroxine 137 mcg tablet 150 mcg PO DAILY 03/27/20 11/16/22 History albuterol sulfate 90 mcg/actuation 1 inh inhalation Q6H PRN SOB 06/22/22 11/16/22 History aerosol inhaler (Ventolin HFA) ascorbic acid (vitamin C) 500 mg 500 mg PO DAILY 06/22/22 11/01/22 History chewable tablet (Vitamin C) fluticasone furoate 100 1 inh inhalation DAILY 06/22/22 11/16/22 History mcg/actuation blister powder for inhalation (Arnuity Ellipta) fluconazole 150 mg tablet 150 mg PO DAILY 2 days #2 tabs 06/29/22 Unknown Rx (Diflucan) nystatin-triamcinolone 100,000 1 applic topical BID 14 days #30 06/29/22 11/01/22 Rx unit/gram-0.1 % topical ointment grams oxycodone-acetaminophen 5 mg-325 1 tab PO Q8H PRN pain 3 days #10 11/02/22 Unknown Rx mg tablet (Percocet) tabs nitrofurantoin 100 mg PO BID #6 caps 11/16/22 Unknown Rx monohydrate/macrocrystals 100 mg capsule (Macrobid) oxycodone-acetaminophen 5 mg-325 1 tab PO Q8H PRN pain 2 days #6 11/16/22 Unknown Rx mg tablet (Percocet) tabs vancomycin 125 mg capsule 125 mg PO Q6H 10 days #40 caps 08/11/23 Unknown Rx levothyroxine 150 mcg tablet mcg 10/15/23 Unknown History methenamine hippurate 1 gram tablet g 10/15/23 Unknown History ondansetron 4 mg disintegrating 4 mg PO Q8H PRN nausea and 10/15/23 Unknown Rx tablet vomiting #14 tabs oxycodone-acetaminophen 5 mg-325 1 tab PO Q6H PRN pain 3 days #12 10/15/23 Unknown Rx mg tablet (Endocet) tabs Allergy/AdvReac Type Severity Reaction Status Date / Time sulfamethoxazole (From Allergy Intermediate Angioedema Verified 08/11/23 19:07 Bactrim) trimethoprim (From Bactrim) Allergy Intermediate Angioedema Verified 08/11/23 19:07 amoxicillin (Amoxicillin) Allergy Anaphylaxis Verified 08/11/23 19:07 articaine Allergy Swelling Verified 08/11/23 19:07 lidocaine Allergy redness/itc Verified 08/11/23 19:07 randa raloxifene (From Evista) Allergy Swelling Verified 08/11/23 19:07 morphine AdvReac Nausea/Vom/ Verified 08/11/23 19:07 Diarrhea Surgical History Hx of colonoscopy Hx of tubal ligation Hx of lithotripsy History of tonsillectomy and adenoidectomy Hx of total knee arthroplasty Social History Smoking Status: Former smoker ROS ROS ED ROS Narrative Constitutional: Denies any fevers, chills, headaches, lightheadedness, dizziness Eyes: Denies change in vision double vision blurry vision Cardiovascular: Denies chest pain or palpitations Respiratory: Denies coughing wheezing shortness of breath Abdomen: Denies any abdominal pain nausea vomiting or diarrhea : Complains of blood in her urine as noted above but denies any painful urination or increased frequency of urinating Neurological: Denies numbness, weakness, tingling Musculoskeletal: Complains of back pain as noted above Skin: Denies rashes or lesions EXAM Physical Exam Narrative Exam Narrative: General: Patient lying in bed rest comfortably did not appear to be in acute distress Head: Atraumatic, normocephalic Eyes: PERRL bilaterally, EOMI bilateral, no conjunctival injection noted Neck: Soft, supple, trachea midline Cardiovascular: Regular rate and rhythm no murmurs gallops rubs noted Respiratory: Clear to auscultation bilaterally no rales rhonchi or wheeze noted Abdomen: Soft, nondistended, tender to palpation, bowel sounds present x 4 Musculoskeletal: Patient has no midline tenderness palpation throughout the lumbar spine does have some tenderness over the right quadratus lumborum no CVA tenderness noted Extremities: +5/5 strength noted in the bilateral upper and lower extremities, no pedal edema on exam Neurological: Patient following commands knew that she was at [facility] year is 2023 Skin: Warm, dry, intact, no rashes or lesions noted Const Vital Signs: 10/15/23 08:27 10/15/23 08:31 10/15/23 10:26 Temperature 96.4 F L Temperature Source Temporal Pulse Rate 60 86 Respiratory Rate 17 16 Blood Pressure 147/98 H 142/76 H Blood Pressure Mean 114 98 Pulse Ox 97 98 Oxygen Delivery Method Room Air Room Air [facility] Narrative Medical decision making narrative: Patient is a 73-year-old female who presented to the emerged part with chief complaint of right-sided back pain. Patient will have a workup performed here on the differential diagnose includes but limited to nephrolithiasis, urolithiasis, UTI, pyelonephritis, ACS. Once workup is obtained reviewed she will be reevaluated. Patient's CBC reviewed and showed white blood count that is normal at 8.3, hemoglobin stable at 15.3, platelet count normal at 256. Patient's sodium normal at 141, potassium normal at 4, creatinine normal at 0.80. Patient's AST and ALT were 20 and 27 respectively with a normal total bilirubin of 0.70. Patient's troponin normal at 5, EKG reviewed and showed sinus bradycardia with a rate of 58 bpm. Patient's urinalysis did reveal 25 occult blood, negative leukocyte esterase and negative nitrites. 0 white blood cells noted and no bacteria noted. Patient's CT abdomen pelvis with IV contrast reviewed and showed stable bilateral parapelvic renal cyst and left cortical renal cyst there is no evidence of ureteral obstruction at this point in time. Sigmoid diverticulosis. Basilar atelectasis worse on the left side. Small left inguinal hernia. Solitary gallstone noted. Did discuss results with the patient and notified her that she is likely passing small kidney stone. Patient will be encouraged to use ibuprofen and Tylenol [id number] for mild to moderate pain and use the Percocet for severe pain. Patient will also be given Zofran. She was encouraged to return for fevers, intractable nausea or vomiting not tolerating oral intake or any other concerns. She verbalized understanding of this she would like to go home she was discharged home in stable condition all question concerns answered Lab Data Labs: Laboratory Results - last 24 hr 10/15/23 10/15/23 08:45 09:18 WBC 8.3 RBC 5.08 Hgb 15.3 H Hct 46.7 MCV 91.9 MCH 30.1 MCHC 32.8 RDW Std Deviation 50.4 H RDW Coeff of Kayce 15.0 H Plt Count 256 MPV 12.6 H Immature Gran % (Auto) 0.500 Neut % (Auto) 75.8 H Lymph % (Auto) 14.8 L [place] % (Auto) 7.1 Eos % (Auto) 1.1 Baso % (Auto) 0.7 Absolute Neuts (auto) 6.3 Absolute Lymphs (auto) 1.22 Nucleated RBC % 0 Sodium 141 Potassium 4.0 Chloride 108 H Carbon Dioxide 26.0 Anion Gap 7 BUN 19 H Creatinine 0.80 Est GFR (MDRD) Af Amer 91 Est GFR (MDRD) Non-Af 75 BUN/Creatinine Ratio 23.8 H Glucose 72 L Calcium 9.0 Total Bilirubin 0.70 AST 20 ALT 27 Alkaline Phosphatase 96 Troponin I High Sens 5 Total Protein 6.9 Albumin 3.3 Globulin 3.6 Albumin/Globulin Ratio 0.9 Lipase 32 Urine Color Yellow Urine Clarity Sl. Cloudy Urine pH 7.0 Ur Specific [place] 1.010 Urine Protein Negative Urine Glucose (UA) Normal Urine Ketones Negative Urine Occult Blood 25 H Urine Nitrite Negative Urine Bilirubin Negative Urine Urobilinogen Normal Ur Leukocyte Esterase Negative Urine RBC 0-5 SEEN Urine WBC 0 SEEN Ur Squamous Epith Cells 0-5 SEEN Urine Bacteria 0 SEEN Urine Mucus 0 SEEN Radiography Diagnostic Testing: Clinical Impression(s) from Imaging Studies Abdomen/Pelvis CT 10/15/23 08:49 IMPRESSION: Stable bilateral parapelvic renal cysts and left cortical renal cyst. There is no evidence of ureteral obstruction at this time. Sigmoid diverticulosis. Bibasilar atelectasis worse on the left side. Small left inguinal hernia. Solitary gallstone. Electronically Signed: Arpit Salazar MD at 10:35 EDT , Discharge Plan Triage Chief Complaint: Flank Pain Other Complaint: Back ED Provider: Samir Pinon Dx/Rx/DC Orders Clinical Impression: Acute right flank pain, Urolithiasis Prescriptions: New oxycodone-acetaminophen [Endocet] 5-325 mg tablet 1 tab PO Q6H PRN (Reason: pain) 3 Days Qty: 12 0RF ondansetron 4 mg tablet,disintegrating 4 mg PO Q8H PRN (Reason: nausea and vomiting) Qty: 14 0RF No Action cyanocobalamin (vitamin B-12) 1,000 MCG tablet, sublingual 1,000 mcg PO DAILY Patient Comments: Supplement fluticasone propionate 1 SPRAY spray,suspension 2 sprays NARES DAILY Patient Comments: allergies levothyroxine 137 MCG tablet 150 mcg PO DAILY ibrutinib 140 MG tablet 420 mg PO DAILY ascorbic acid (vitamin C) [Vitamin C] 500 mg Tablet,Chewable 500 mg PO DAILY albuterol sulfate [Ventolin HFA] 90 mcg/actuation Hfa Aerosol Inhaler 1 inh INHALATION Q6H PRN (Reason: SOB) Arnuity Ellipta 100 mcg/actuation Blister With Device 1 inh INHALATION DAILY fluconazole [Diflucan] 150 mg tablet 150 mg PO DAILY 2 Days Qty: 2 0RF nystatin-triamcinolone 100,000-0.1 unit/gram-% ointment 1 applic topical BID 14 Days Qty: 30 0RF oxycodone-acetaminophen [Percocet] 5-325 mg tablet 1 tab PO Q8H PRN (Reason: pain) 3 Days Qty: 10 0RF oxycodone-acetaminophen [Percocet] 5-325 mg tablet 1 tab PO Q8H PRN (Reason: pain) 2 Days Qty: 6 0RF nitrofurantoin monohyd/m-cryst [Macrobid] 100 mg capsule 100 mg PO BID Qty: 6 0RF Rx Instructions: must administer with a meal/food methenamine hippurate 1 gram tablet Patient Comments: TAKE 1 TABLET BY MOUTH TWICE DAILY levothyroxine 150 mcg tablet Patient Comments: TAKE 1 TABLET BY MOUTH ONCE DAILY ON AN EMPTY STOMACH FOR THYROID vancomycin 125 mg capsule 125 mg PO Q6H 10 Days Qty: 40 0RF Primary Care Provider: Derian De Jesus Referrals: Derian De Jesus MD [Primary Care Provider] - Activity Restrictions/Additional Instructions: Follow-up with your doctor in the outpatient setting. Return for fevers, persistent vomiting not tolerating oral intake. Use Tylenol ibuprofen [id number] for mild to moderate pain and use the narcotic for severe pain. Do not operate anything under the influence of these drugs. Print Language: Vietnamese Disposition Disposition: Home, Self Care
[2023-10-15 09:06] LABS: Absolute Lymphocyte Count 1.22 X10^3/uL (0.83-4.51); Absolute Neutrophil Count 6.3 X10^3/uL (2.0-7.7); Basophil# 0.06 X10^3/uL; Basophil% 0.7 % (0-1); Eosinophil# 0.09 X10^3/uL; Eosinophils% 1.1 % (0-5); Hematocrit 46.7 % (37-47); Hemoglobin 15.3 g/dL (12.0-15.0); Lymphocyte # 1.22 X10^3/ul (0.83-4.51); Lymphocyte % 14.8 % (19-41); Mean Corp Hgb Conc 32.8 g/dL (32-36); Mean Corpuscular Hgb 30.1 pg (27.0-32.0); Mean Corpuscular Volume 91.9 fL (81-99); Mean Platelet Vol. 12.6 fl (6.2-12.0); Monocyte# 0.59 X10^3/uL; Monocyte% 7.1 % (0-10); NRBC Flagged by Analyzer 0 % (0-5); Neutrophil # 6.27 X10^3/uL (2.7-7.7); Neutrophil % 75.8 % (47-70); Platelet Count 256 K/mm3 (150-450); RBC Distribution Width SD 50.4 fl (35.1-43.9); Red Blood Count 5.08 M/mm3 (4.2-5.4); White Blood Count 8.3 K/mm3 (4.4-11.0)
[2023-10-15] MEDS: 0.9% Normal Saline (1000mL) 1,000 ML 999 ML IV (09:08)
[2023-10-15] MEDS: Ketorolac 30 MG/ML Syringe IV (09:09)
[2023-10-15 09:20] LABS: ALB/GLOB Ratio 0.9 RATIO (0.9-2.4); AST(SGOT) 20 U/L (15-37); Alanine Aminotransfer ALT/SGPT 27 U/L (13-56); Albumin, Serum 3.3 g/dL (3.2-5.0); Alkaline Phosphatase 96 U/L (45-117); Anion Gap 7 (5-15); BUN 19 mg/dL (7-18); BUN/Creat Ratio 23.8 RATIO (10-20); Chloride 108 mmol/L (98-107); EST Glomerular Filtration Rate 75 mL/min (>60); Est Glom Filt Rate - Afr Amer 91 mL/min (>60); Globulin 3.6 g/dL (2.2-4.2); Glucose 72 mg/dL (74-106); Lipase 32 U/L (13-75); Protein, Total 6.9 g/dL (6.4-8.2); Sodium Level 141 mmol/L (136-145); Troponin-I HS 5 pg/mL (3.0-54.0)
[2023-10-15 09:22] LABS: Bacteria 0 SEEN /hpf (None Seen); Mucous, Urine 0 SEEN /hpf (<or=2+); White Blood Cells 0 SEEN /hpf (0-5)
[2023-10-15 09:25] LABS: Color, Urine Yellow (Yellow); Glucose, Dipstick Normal (Normal); Ketone-Dipstick Negative (Negative); Leukocyte Esterase-Dipstick Negative /ul (Negative); Nitrite-Dipstick Negative (Negative); Occult Blood-Urine 25 /ul (Negative); Protein-Dipstick Negative (Negative); Urine Bilirubin Dipstick Negative (Negative); Urine Clarity Sl. Cloudy (Clear); Urine Urobilinogen Normal (Normal)
[2023-10-15] MEDS: Ondansetron 4 MG/2 ML Vial IV (09:25)
[2023-10-15 09:33] LABS: Red Blood Cells-Urine 0-5 SEEN /hpf (0-5); Squamous Epithelial Cells - UA 0-5 SEEN /hpf (5-10)
[2023-10-15 10:26] VITALS: BP 142/76; PULSE 86; RESP 16; O2SAT 98
== END 2023-10-15 11:54 | disposition home or self-care (01) ==
PROVIDERS: Emergency Provider Emergency Medicine; PCP Family Medicine; Visit Provider Emergency Medicine
DX: N20.9 Urinary calculus, unspecified (principal); J44.9 Chronic obstructive pulmonary disease, unspecified; R00.1 Bradycardia, unspecified; R31.9 Hematuria, unspecified; N28.1 Cyst of kidney, acquired; K57.30 Diverticulosis of large intestine without perforation or abscess without bleeding; K80.20 Calculus of gallbladder without cholecystitis without obstruction; K40.90 Unilateral inguinal hernia, without obstruction or gangrene, not specified as recurrent; Z79.890 Hormone replacement therapy; Z79.899 Other long term (current) drug therapy; Z87.891 Personal history of nicotine dependence
CPT/HCPCS: 74177; 80053; 81001; 83690; 84484; 85025; 93005; 96361; 96374; 96375; 99284; Q9967; A4216; J2405

== ENCOUNTER → 2023-10-30 | Outpatient (CLI) | payer MEDICARE, SELFPAY ==
[2023-10-30 10:25] LABS: Color, Urine Yellow (Yellow); Glucose, Dipstick Normal (Normal); Ketone-Dipstick Negative (Negative); Leukocyte Esterase-Dipstick 500 /ul (Negative); Nitrite-Dipstick Negative (Negative); Occult Blood-Urine 50 /ul (Negative); Protein-Dipstick 30 mg/dl (Negative); Urine Bilirubin Dipstick Negative (Negative); Urine Clarity Cloudy (Clear); Urine Urobilinogen Normal (Normal)
== END | disposition home or self-care (01) ==
LOC: LAB 10:11
PROVIDERS: PCP Family Medicine; Referring Provider Internal Medicine Infectious Disease; Visit Provider Internal Medicine Infectious Disease
DX: N39.0 Urinary tract infection, site not specified (principal)
CPT/HCPCS: 81002; 87086; 87088; 87186

== ENCOUNTER → 2023-11-30 | Outpatient (CLI) | payer MEDICARE, SELFPAY ==
[2023-11-30 14:08] LABS: Bacteria 0 SEEN /hpf (None Seen)
[2023-11-30 14:37] LABS: Color, Urine Yellow (Yellow); Glucose, Dipstick Normal (Normal); Ketone-Dipstick Negative (Negative); Leukocyte Esterase-Dipstick 25 /ul (Negative); Nitrite-Dipstick Negative (Negative); Occult Blood-Urine 50 /ul (Negative); Protein-Dipstick Negative (Negative); Urine Bilirubin Dipstick Negative (Negative); Urine Clarity Clear (Clear); Urine Urobilinogen Normal (Normal); Urine pH 6.5 (5.0 - 8.0)
[2023-11-30 15:13] LABS: Red Blood Cells-Urine 0-5 SEEN /hpf (0-5); Squamous Epithelial Cells - UA 0-5 SEEN /hpf (5-10); White Blood Cells 0-5 SEEN /hpf (0-5)
[2023-11-30 15:16] LABS: Mucous, Urine 1+ /hpf (<or=2+)
== END | disposition home or self-care (01) ==
LOC: LAB 13:50
PROVIDERS: PCP Family Medicine; Referring Provider Internal Medicine Infectious Disease; Visit Provider Internal Medicine Infectious Disease
DX: N39.0 Urinary tract infection, site not specified (principal)
CPT/HCPCS: 81001; 87086; 87088

== ENCOUNTER 2023-12-26 10:43 | Emergency (ER) | payer MEDICARE, SELFPAY ==
[2023-12-26 10:44] VITALS: BP 135/89; PULSE 65; RESP 15; TEMP 36.4; O2SAT 99; BMI 32.8
--- NOTE | 2023-12-26 11:02 | CT_ITS ---
EXAM: CT HEAD WITHOUT INTRAVENOUS CONTRAST CLINICAL INDICATION: Fell and hit head trauma injury on Sunday. TECHNIQUE: Multiple axial images were obtained of the head without intravenous contrast. This CT exam was performed using one or more of the following dose reduction techniques: automated exposure control, adjustment of the mA and/or kV according to patient size, and/or use of iterative reconstruction technique. RADIATION DOSE: CTDIvol = 44.99 mGy, DLP = 897.35 mGy-cm COMPARISON: MRI brain with and without contrast 10/30/2015. FINDINGS: BRAIN AND EXTRA-AXIAL SPACES: Unremarkable. No intra- or extra-axial hemorrhage. No evidence of acute infarct. No intracranial mass or mass effect. There is preservation of the ferreira/white matter interface. Posterior fossa structures are unremarkable. Ventricles are appropriate for age. No hydrocephalus. Basal cisterns are patent. BONES/JOINTS: Unremarkable. No discrete lytic or blastic abnormalities. SOFT TISSUES: Left frontal soft tissue scalp swelling. SINUSES: Unremarkable as visualized. Clear. MASTOID AIR CELLS: Unremarkable. Clear. ORBITS: Visualized globes, extraocular muscles, optic nerves and retrobulbar fat appear unremarkable. CT/Brain/Head without Contrast IMPRESSION: Left frontal scalp soft tissue swelling otherwise negative noncontrast CT head scan. Electronically Signed: Dereck Evans MD at 11:54 EDT ,
--- NOTE | 2023-12-26 11:16 | EDS_ITS ---
HPI History of Present Illness Chief Complaint: Head Injury Informant: patient Narrative Narrative: 73-year-old female presenting to the emergency room with head injury. Patient states that last Sunday she fell into the bathtub striking her head. No loss of consciousness. Since then she has not had any vomiting or reported altered mental status. No seizure activity. The patient notes facial swelling and bruising particular on the left eye. She denies any loss of vision or significant visual change. She notes continued discomfort in the face and head. She is not on any direct anticoagulants [facility] Medical History Urge incontinence Left renal stone Wears glasses Cancer Alcohol use Thyroid disease Overactive bladder Arthritis Anemia Easy bruising Back pain CPAP (continuous positive airway pressure) dependence Former smoker COPD (chronic obstructive pulmonary disease) Asthma Pain History of pain when walking History of echocardiogram Home Medications ?Medication ?Instructions ?Recorded ?Last Taken ?Type cyanocobalamin (vitamin B-12) 1,000 mcg PO DAILY 04/19/14 11/01/22 History 1,000 mcg sublingual tablet fluticasone propionate 50 2 sprays DAILY 04/23/16 11/01/22 History mcg/actuation nasal spray,suspension ibrutinib 140 mg tablet 420 mg PO DAILY 03/27/20 11/12/22 History albuterol sulfate 90 mcg/actuation 1 inh inhalation Q6H PRN SOB 06/22/22 11/16/22 History aerosol inhaler (Ventolin HFA) ascorbic acid (vitamin C) 500 mg 500 mg PO DAILY 06/22/22 11/01/22 History chewable tablet (Vitamin C) fluticasone furoate 100 1 inh inhalation DAILY 06/22/22 11/16/22 History mcg/actuation blister powder for inhalation (Arnuity Ellipta) nystatin-triamcinolone 100,000 1 applic topical BID 14 days #30 06/29/22 11/01/22 Rx unit/gram-0.1 % topical ointment grams oxycodone-acetaminophen 5 mg-325 1 tab PO Q8H PRN pain 3 days #10 11/02/22 Unknown Rx mg tablet (Percocet) tabs oxycodone-acetaminophen 5 mg-325 1 tab PO Q8H PRN pain 2 days #6 11/16/22 Unknown Rx mg tablet (Percocet) tabs levothyroxine 150 mcg tablet 150 mcg PO DAILY 10/15/23 Unknown History methenamine hippurate 1 gram tablet 1 g PO Q12H 10/15/23 Unknown History ondansetron 4 mg disintegrating 4 mg PO Q8H PRN nausea and 10/15/23 Unknown Rx tablet vomiting #14 tabs oxycodone-acetaminophen 5 mg-325 1 tab PO Q6H PRN pain 3 days #12 10/15/23 Unknown Rx mg tablet (Endocet) tabs Allergy/AdvReac Type Severity Reaction Status Date / Time sulfamethoxazole (From Allergy Intermediate Angioedema Verified 12/26/23 10:47 Bactrim) trimethoprim (From Bactrim) Allergy Intermediate Angioedema Verified 12/26/23 10:47 amoxicillin (Amoxicillin) Allergy Anaphylaxis Verified 12/26/23 10:47 articaine Allergy Swelling Verified 12/26/23 10:47 lidocaine Allergy redness/itc Verified 12/26/23 10:47 randa raloxifene (From Evista) Allergy Swelling Verified 12/26/23 10:47 morphine AdvReac Nausea/Vom/ Verified 12/26/23 10:47 Diarrhea Surgical History Hx of colonoscopy Hx of tubal ligation Hx of lithotripsy History of tonsillectomy and adenoidectomy Hx of total knee arthroplasty Social History household members: spouse housing: house Smoking Status: Former smoker ROS ROS ED Constitutional Constitutional ED: Denies chills or weight loss Eyes Eyes: Denies change in vision or diplopia ENT ENT ED: Reports other Details: Periorbital ecchymosis/swelling ; Denies ear pain, rhinorrhea or sore throat Cardiovascular Cardiovascular: Denies chest pain, orthopnea, palpitations or racing heartbeat Respiratory/Chest Respiratory/Chest: Denies cough, dyspnea or orthopnea Gastrointestinal Gastrointestinal: Denies abdominal pain, diarrhea, nausea or vomiting Genitourinary Genitourinary ED: Denies dysuria, hematuria or urinary frequency Musculoskeletal Musculoskeletal: Denies arthralgias, back pain, myalgias or neck pain Integumentary Denies abscess or rash Neurologic Neurologic: Reports headache(s); Denies paresthesias or weakness Psychiatric Psychiatric: Denies anxiety, depression, suicidal ideation or suicidal thoughts Endocrine Endocrinology: Denies polydipsia, polyphagia or polyuria Allergic/Immunologic Allergic/Immunologic ED: Denies mouth swelling, tongue swelling or urticaria EXAM Physical Exam Const Vital Signs: 12/26/23 10:44 12/26/23 10:52 Temperature 97.6 F L Temperature Source Temporal Pulse Rate 65 Respiratory Rate 15 Respiratory Effort Normal Non-Labored Respiratory Depth Normal Respiratory Pattern Normal Blood Pressure 135/89 H Blood Pressure Mean 104 Pulse Ox 99 Oxygen Delivery Method Room Air Room Air Positive well nourished and well developed General Appearance ED: well developed HEENT Reports normocephalic and moist mucous membranes HEENT Narrative: There is bilateral left greater than right periorbital ecchymosis and swelling. Extraocular motions are intact. There is no hyphema or subconjunctival hemorrhage. No ocular pain with movement. She has contusion onto the left forehead. There is some mild nasal swelling and ecchymosis. No septal hematoma. Midface appears stable. No malocclusion or dental trauma. Eyes PERRL and EOMs intact bilaterally Neck no lymphadenopathy, supple and no JVD Resp normal respiratory effort and clear to auscultation bilaterally Cardio regular rate, regular rhythm and no murmurs GI normal to inspection, nondistended, normoactive bowel sounds and non-tender Palpation: soft Back/Spine no CVA tenderness and normal ROM Extremity normal to inspection General Extremety ED: Negative for edema General Extremity: Negative for edema Neuro oriented x3 and CN's II-XII intact bilaterally Sensorium / Orientation: alert Motor Exam: strength 5/5 throughout Psych mental status grossly normal Mood & Affect: Negative for depressed or tearful Skin no rashes or lesions noted and no wounds MDM MDM MDM Narrative Medical decision making narrative: Differential diagnosis includes but not limited to skull fracture facial fracture concussion intracranial hemorrhage CT of the brain was obtained which does not demonstrate any obvious fracture or intracranial hemorrhage. I think the patient can be discharged home with supportive care. Would recommend follow-up as needed return if worsening. Patient is comfortable with this plan. History & Record Review Discussion w/independent historian: Patient Radiography Diagnostic Testing: Clinical Impression(s) from Imaging Studies Brain CT 12/26/23 11:02 IMPRESSION: Left frontal scalp soft tissue swelling otherwise negative noncontrast CT head scan. Electronically Signed: Dereck Evans MD at 11:54 EDT , Discharge Plan Triage Chief Complaint: Head Injury ED Provider: Sandip Reid Dx/Rx/DC Orders Clinical Impression: Periorbital contusion of left eye, Periorbital contusion of right eye, Contusion of face Instructions: ED Facial Contusion, ED Head Injury (Adult) Prescriptions: No Action cyanocobalamin (vitamin B-12) 1,000 MCG tablet, sublingual 1,000 mcg PO DAILY Patient Comments: Supplement fluticasone propionate 1 SPRAY spray,suspension 2 sprays NARES DAILY Patient Comments: allergies ibrutinib 140 MG tablet 420 mg PO DAILY ascorbic acid (vitamin C) [Vitamin C] 500 mg Tablet,Chewable 500 mg PO DAILY albuterol sulfate [Ventolin HFA] 90 mcg/actuation Hfa Aerosol Inhaler 1 inh INHALATION Q6H PRN (Reason: SOB) Arnuity Ellipta 100 mcg/actuation Blister With Device 1 inh INHALATION DAILY nystatin-triamcinolone 100,000-0.1 unit/gram-% ointment 1 applic topical BID 14 Days Qty: 30 0RF oxycodone-acetaminophen [Percocet] 5-325 mg tablet 1 tab PO Q8H PRN (Reason: pain) 3 Days Qty: 10 0RF oxycodone-acetaminophen [Percocet] 5-325 mg tablet 1 tab PO Q8H PRN (Reason: pain) 2 Days Qty: 6 0RF methenamine hippurate 1 gram tablet 1 g PO Q12H Patient Comments: TAKE 1 TABLET BY MOUTH TWICE DAILY levothyroxine 150 mcg tablet 150 mcg PO DAILY Patient Comments: TAKE 1 TABLET BY MOUTH ONCE DAILY ON AN EMPTY STOMACH FOR THYROID oxycodone-acetaminophen [Endocet] 5-325 mg tablet 1 tab PO Q6H PRN (Reason: pain) 3 Days Qty: 12 0RF ondansetron 4 mg tablet,disintegrating 4 mg PO Q8H PRN (Reason: nausea and vomiting) Qty: 14 0RF Primary Care Provider: Derian De Jesus Referrals: Derian De Jesus MD [Primary Care Provider] - As Needed Print Language: Slovak Disposition Disposition: Home, Self Care
[2023-12-26 12:12] VITALS: BP 145/81; PULSE 62; RESP 18; TEMP 36.1; O2SAT 94
== END 2023-12-26 12:13 | disposition home or self-care (01) ==
LOC: ED 11:52
PROVIDERS: Emergency Provider Emergency Medicine; PCP Family Medicine; Visit Provider Emergency Medicine
DX: S05.11XA Contusion of eyeball and orbital tissues, right eye, initial encounter (principal); J44.9 Chronic obstructive pulmonary disease, unspecified; Z87.891 Personal history of nicotine dependence; S05.12XA Contusion of eyeball and orbital tissues, left eye, initial encounter; Z98.51 Tubal ligation status; W18.2XXA Fall in (into) shower or empty bathtub, initial encounter
CPT/HCPCS: 70450; 99282

== ENCOUNTER → 2024-01-02 | Outpatient (CLI) | payer MEDICARE, SELFPAY ==
[2024-01-02 15:06] LABS: Mucous, Urine 0 SEEN /hpf (<or=2+)
[2024-01-02 15:49] LABS: Color, Urine Yellow (Yellow); Glucose, Dipstick Normal (Normal); Ketone-Dipstick Negative (Negative); Leukocyte Esterase-Dipstick 25 /ul (Negative); Nitrite-Dipstick Negative (Negative); Occult Blood-Urine 25 /ul (Negative); Protein-Dipstick 15 mg/dl (Negative); Specific Gravity, Urine 1.015 (1.002-1.030); Urine Bilirubin Dipstick Negative (Negative); Urine Clarity Clear (Clear); Urine Urobilinogen Normal (Normal); Urine pH 6.5 (5.0 - 8.0)
[2024-01-02 16:12] LABS: Bacteria RARE /hpf (None Seen); Red Blood Cells-Urine 0-5 SEEN /hpf (0-5); White Blood Cells 0-5 SEEN /hpf (0-5)
[2024-01-02 16:13] LABS: Squamous Epithelial Cells - UA 0-5 SEEN /hpf (5-10)
== END | disposition home or self-care (01) ==
PROVIDERS: PCP Family Medicine; Referring Provider Internal Medicine Infectious Disease; Visit Provider Internal Medicine Infectious Disease
DX: N39.0 Urinary tract infection, site not specified (principal)
CPT/HCPCS: 81001; 87086; 87088

== ENCOUNTER 2024-01-24 15:00 | Outpatient (RCR) | payer MEDICARE, SELFPAY ==
--- NOTE | 2023-11-16 07:52 | HP.PTEVAL_ITS ---
Patient's Visit Information Visit Information Visit Information: RODERICK ORTIZ is a 73 year old F referred to Physical Therapy by Dr. Martine Gillette MD with a diagnosis of back pain. Date of Evaluation: 11/16/23 Physical Therapist: Rohan Florez, DPT, OCS, CSCS Visit Plan Frequency: 1-2x /Week Duration: 4-6 Weeks Plan: 1-2x/week for 3-6 weeks for... posterior pelvic tilt and neutral spine strength, rollout and stretch quad and psoas B, stretch ITB. LB ROM core strength to HEP and gym as tolerated. Has TENS untii and may bring for instruction. IE SKC, PPT and trunk rotation 10x 3x/day with pics and neutral spine posture uipon standing. Subjective Subjective: Started with back pain after golfing a few rounds one wek. back started hurting. Had blood in urine and so went to ER. CT scan did not show much. Given pain meds but did not get better. urologist said no kidney stones. Has had LBP in the past but not typically a problem. Pain is R LB and no leg symptoms that are different than normal. Sees Basali for injection which helps for a year. Has not seen basali for this. No regular exercises since this happeneded. 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 Sleep is interrupted some nights and not others. Not employed. Spends day doing a lot of bam and being on her feet is worse. Avoiding stairs alot. Does everything else, has been gardening and bam but limited in bending, works through most things. Basic ADLs all I but sometimes painful. Pain R LB: Pain Intensity (Out of 10): 4 Pain Intensity Range: 0 and 8 Comment: worse on feet and better sitting. Objective Objective: Walks without pain this am, trasnfers chair I without pain, bed trasnfer and rolling is I but painful R LB. Steps are reciprocal with pain more descending this am then ascending in R LB. psoas and quad max tight R >L, HS mod tight B. ITB mod tight B. AROM hip and knees WFL but R knee flexion tighter due to previous knee re placement. AROM lumbar ext min limited, flexion mod limited, R sB painful and L SB not. reflexes 1/3 patella and achilles Sensation LE WNL to gross light touch in LE. strength LE hips 3 abd and ext and 3+ flexion with some pain on R extension. knees 4 on B knee flex and ext ankles 4 B. - SLR, - slump Balance/Special Test Scores Oswestry Low Back Score: 17 Goals Goal 1:: sleep without waking due to pain Goal Time Frame: 4-6 Weeks Goal 2:: pain in R LB 1/10 at worst and 90% better overall. Goal Time Frame: 4-6 Weeks Goal 3:: I appropriate HEP to limit future problems Goal Time Frame: 4-6 Weeks Goal 4:: Can without increased pain Goal Time Frame: 4-6 Weeks Goal 5:: back oswestry 8 or less Goal Time Frame: 4-6 Weeks Rehabilitation Potential Physical Therapy Diagnosis: back pain limiting funciton comfortable. Rehabilitation Potential: Fair Anticipated Interventions Patient/Client Instruction: Educate patient on: Condition and Plan of Care For the Purpose of:: To decrease pain and To increase ROM Therapeutic Exercise to Include: Strength training, Postural training, Passive ROM, Active ROM and Dynamic Lumbar Stabilization For the Purpose of:: To decrease pain, To increase ROM, To improve nutrient delivery to tissue, To improve muscle performance and motor function, To i ncrease tolerance to activity/condition/position and To improve gait and locomotor functions Manual Therapy Techniques to Include: Mobilization, Passive ROM and Soft tissue mobilization For the Purpose of:: To decrease pain, To increase ROM and To improve nutrient delivery to tissue TENS: Yes Thermo therapy (hot pack): Yes For the Purpose of:: To decrease pain Text: Thank you for the opportunity to evaluate your patient. For Medicare and Medicare HMO plans, please review the plan of care and approve it. It will need to be FAXED BACK to us at [phone] for Medicare purposes. For Medicare only, by signing this I certify the plan of care. Please let me know if there are questions or concerns regarding this plan of care. Physician Signature: Date:
--- NOTE | 2024-03-24 09:21 | HP.PTDCSUM ---
Discharge Summary D/C summary: It has been my pleasure to treat RODERICK ORTIZ referred by Dr. Martine Gillette MD, with the diagnosis of back pain for a total of 13 visit(s). Discharge Date: 01/24/24 Please see the following information for a summary of their discharge status. Subjective Subjective: Did well out there in the gym. Still going right way in the gyma dn with pain. No pain in a couple weeks. Sleep is OK. Ready to be done adn will continue in the gym. To doctor in april. Pain R LB: Pain Intensity (Out of 10): 0 Overall Improvement % Improvement: 100 Objective Objective/Function: Good Lumbar ROM without pain today, walking well and bending without issues. Goals Goal 1:: sleep without waking due to pain Goal Progress: Goal Met Goal 2:: pain in R LB 1/10 at worst and 90% better overall. Goal Progress: Goal Met Goal 3:: I appropriate HEP to limit future problems Goal Progress: Goal Met Goal 4:: Can without increased pain Goal Progress: not time Goal 5:: back oswestry 8 or less Goal Progress: Goal Met Plan Plan: d/c D/C Information Discharge Comments: to continue I on her own. d/c sentence: If there are questions or concerns regarding this patient's physical therapy, please feel free to call me at [phone]. Thank you for the referral of this patient. Sincerely, Rohan Florez, DPT, OCS, CSCS Balance/Gait/Functional tests Balance/Special Test Scores Oswestry Low Back Score: 2 Improvement % Improvement: 100
== END 2024-01-24 19:00 | disposition home or self-care (01) ==
LOC: PT 15:00
PROVIDERS: PCP Family Medicine; Referring Provider Urology; Visit Provider Urology
DX: M54.9 Dorsalgia, unspecified (principal)
CPT/HCPCS: 97110; 97161; 97530

== ENCOUNTER → 2024-05-30 | Outpatient (CLI) | payer MEDICARE, SELFPAY ==
--- NOTE | 2024-05-30 12:35 | RAD_ITS ---
EXAM: XR Chest, 2 Views CLINICAL INDICATION: ASTHMA TECHNIQUE: Frontal and lateral views of the chest. COMPARISON: No relevant prior studies available. FINDINGS: LUNGS AND PLEURAL SPACES: Unremarkable. No consolidation. No pneumothorax. HEART: Unremarkable. No cardiomegaly. MEDIASTINUM: Unremarkable. Normal mediastinal contour. BONES/JOINTS: Unremarkable. No acute fracture. RAD/Chest PA and Lateral IMPRESSION: No acute cardiopulmonary process. Reading Location: [id number]
== END | disposition home or self-care (01) ==
LOC: RAD.FUTURE 12:19 → RAD 12:19
PROVIDERS: PCP Family Medicine; Referring Provider Internal Medicine Pulmonary Disease; Visit Provider Internal Medicine Pulmonary Disease
DX: J45.40 Moderate persistent asthma, uncomplicated (principal)
CPT/HCPCS: 71046

== ENCOUNTER → 2024-06-14 | Outpatient (CLI) | payer MEDICARE, SELFPAY ==
[2024-06-14 11:26] LABS: Absolute Lymphocyte Count 1.26 X10^3/uL (0.83-4.51); Absolute Neutrophil Count 3.6 X10^3/uL (2.0-7.7); Basophil# 0.06 X10^3/uL; Basophil% 1.1 % (0-1); Eosinophil# 0.05 X10^3/uL; Eosinophils% 0.9 % (0-5); Hematocrit 47.5 % (37-47); Hemoglobin 15.3 g/dL (12.0-15.0); Lymphocyte # 1.26 X10^3/ul (0.83-4.51); Lymphocyte % 22.5 % (19-41); Mean Corp Hgb Conc 32.2 g/dL (32-36); Mean Corpuscular Hgb 30.4 pg (27.0-32.0); Mean Corpuscular Volume 94.2 fL (81-99); Mean Platelet Vol. 12.3 fl (6.2-12.0); Monocyte# 0.62 X10^3/uL; Monocyte% 11.1 % (0-10); NRBC Flagged by Analyzer 0 % (0-5); Neutrophil # 3.55 X10^3/uL (2.7-7.7); Neutrophil % 63.2 % (47-70); Platelet Count 251 K/mm3 (150-450); RBC Distribution Width CV 14.7 % (11.6-14.6); RBC Distribution Width SD 51.4 fl (35.1-43.9); Red Blood Count 5.04 M/mm3 (4.2-5.4); White Blood Count 5.6 K/mm3 (4.4-11.0)
== END | disposition home or self-care (01) ==
LOC: LAB 10:31
PROVIDERS: PCP Family Medicine; Referring Provider Internal Medicine Pulmonary Disease; Visit Provider Internal Medicine Pulmonary Disease
DX: R05.9 Cough, unspecified (principal); J45.40 Moderate persistent asthma, uncomplicated
CPT/HCPCS: 36415; 85025

== ENCOUNTER → 2024-07-01 | Outpatient (CLI) | payer MEDICARE, SELFPAY ==
--- NOTE | 2024-07-01 09:10 | RAD_ITS ---
EXAM: XR Chest, 2 Views CLINICAL INDICATION: ASTHMA TECHNIQUE: Frontal and lateral views of the chest. COMPARISON: No relevant prior studies available. FINDINGS: LUNGS AND PLEURAL SPACES: Unremarkable. No consolidation. No pneumothorax. HEART: Unremarkable. No cardiomegaly. MEDIASTINUM: Unremarkable. Normal mediastinal contour. BONES/JOINTS: Unremarkable. No acute fracture. RAD/Chest PA and Lateral IMPRESSION: No acute cardiopulmonary process. Reading Location: [facility]
== END | disposition home or self-care (01) ==
LOC: RAD 09:04
PROVIDERS: PCP Family Medicine; Referring Provider Internal Medicine Pulmonary Disease; Visit Provider Internal Medicine Pulmonary Disease
DX: J45.40 Moderate persistent asthma, uncomplicated (principal)
CPT/HCPCS: 71046

== ENCOUNTER → 2024-07-09 | Outpatient (CLI) | payer MEDICARE, SELFPAY ==
--- NOTE | 2024-07-09 12:55 | ECHOD_ITS ---
Reason For Study Reason For Study: PULMONARY HYPERTENSION Procedure This was a 2D Doppler, Color Flow transthoracic echocardiogram. Exam performed in department. Left Ventricle Normal left ventricle. Left ventricular systolic function is normal. The left ventricular ejection fraction is 65 %. Stage 1 diastolic dysfunction. No regional wall motion abnormalities noted. Right Ventricle Normal RV size. Normal systolic function. Atria The left and right atria are normal. Normal right atrium. Mitral Valve Normal mitral valve. Tricuspid Valve Normal tricuspid valve. Mild (1+) tricuspid valve insufficiency. Pulmonary artery systolic pressure is 45 mmHg. Aortic Valve Trisinus/trileaflet aortic valve. Pulmonic Valve Normal pulmonic valve. Great Vessels Normal aortic root. The pulmonary artery is normal size. Normal inferior vena cava. Pericardium/Pleural No pericardial effusion. MMode/2D Measurements & Calculations LVIDd: 4.3 cm IVSd: 1.2 cm Ao root diam: 3.2 cm LVIDs: 2.9 cm LVPWd: 0.98 cm RVDd: 3.0 cm FS: 32.0 % LAV(MOD-bp): 36.8 ml LVAd ap4: 25.5 cm2 SV(MOD-sp4): 49.0 ml LAV(MOD-bp) Indexed: 17.8 ml/m2 LVLd ap4: 7.3 cm SI(MOD-sp4): 23.7 ml/m2 LAV(MOD-sp2): 34.5 ml EDV(MOD-sp4): 74.9 ml LAV(MOD-sp4): 36.7 ml EDV(sp4-el): 75.4 ml LVAs ap4: 13.4 cm2 LVLs ap4: 5.9 cm ESV(MOD-sp4): 25.9 ml ESV(sp4-el): 25.8 ml EF(MOD-sp4): 65.4 % EF(sp4-el): 65.8 % SV(sp4-el): 49.6 ml LA A4 area: 15.7 cm2 LA dimension(2D): 2.8 cm RA A4 area: 14.7 cm2 TAPSE: 2.1 cm Time Measurements MV dec time: 0.23 sec Doppler Measurements & Calculations MV E max cesar: 73.1 cm/sec Lat Peak E' Cesar: 11.1 cm/sec Med Peak E' Cesar: 10.4 cm/sec MV A max cesar: 88.5 cm/sec E/E' lat: 6.6 E/E' med: 7.0 MV E/A: 0.83 Ao V2 max: 157.8 cm/sec LV V1 max: 139.8 cm/sec PA V2 max: 115.3 cm/sec Ao max P.0 mmHg LV V1 max P.8 mmHg TR max cesar: 323.7 cm/sec TR max P.9 mmHg ECHO/Echo Complete Interpretation Summary Normal left ventricle. Left ventricular systolic function is normal. The left ventricular ejection fraction is 65 %. Stage 1 diastolic dysfunction. Pulmonary artery systolic pressure is 45 mmHg. Structurally normal valves. Ordering Physician: Isaac Solorio V Referring Physician: Isaac Solorio V Performed By: Carolyn Camargo RDCS
== END | disposition home or self-care (01) ==
LOC: CVS 12:52
PROVIDERS: PCP Family Medicine; Referring Provider Internal Medicine Pulmonary Disease; Visit Provider Internal Medicine Pulmonary Disease
DX: I27.0 Primary pulmonary hypertension (principal)
CPT/HCPCS: 93306

== ENCOUNTER 2024-09-24 09:34 | Outpatient (CLI) | payer MEDICARE, SELFPAY ==
[2024-09-24 12:42] LABS: Pro- Brain NATRIURETIC PEPTIDE 81 pg/mL (<=900)
== END 2024-09-24 23:59 | disposition home or self-care (01) ==
LOC: MTLAB 09:35
PROVIDERS: PCP Family Medicine; Referring Provider Internal Medicine Pulmonary Disease; Visit Provider Internal Medicine Pulmonary Disease
DX: I27.0 Primary pulmonary hypertension (principal)
CPT/HCPCS: 36415; 83880

== ENCOUNTER → 2025-01-21 | Outpatient (CLI) | payer MEDICARE, SELFPAY ==
--- NOTE | 2025-01-21 10:35 | RAD_ITS ---
PROCEDURE: LUMBAR SPINE 2 OR 3 VIEWS 01/21/2025 REASON FOR EXAM: LUMBAR RADICULOPATHY TECHNIQUE: Procedure Code: RADSPLL Modality: DX Procedure: LUMBAR SPINE 2 OR 3 VIEWS COMPARISON: 04/09/2023 FINDINGS: There is mild degenerative disc space narrowing most pronounced between L4 and S1. Minimal accentuation of the lumbar lordosis. A stimulator device overlies the sacrum. There is no acute fracture or subluxation. Vascular calcifications are noted anterior to the spine. The sacroiliac and hip joints are intact. RAD/Lumbar Spine 2 or 3 Views IMPRESSION: Mild degenerative changes as above. Given the history, MRI may be clinically i ndicated. Reading Location: [facility]
== END | disposition home or self-care (01) ==
LOC: RAD 10:26
PROVIDERS: PCP Family Medicine; Referring Provider Anesthesiology Pain Medicine; Visit Provider Anesthesiology Pain Medicine
DX: M54.16 Radiculopathy, lumbar region (principal)
CPT/HCPCS: 72100

== ENCOUNTER → 2025-02-27 | Outpatient (CLI) | payer MEDICARE, SELFPAY ==
--- NOTE | 2025-02-27 10:55 | MRI_ITS ---
PROCEDURE: SPINE LUMBAR (ROUTINE) 02/27/2025 REASON FOR EXAM: Clinical history of lumbar stenosis TECHNIQUE: Procedure Code: MRISPL Modality: MR Procedure: SPINE LUMBAR (ROUTINE) COMPARISON: None available. FINDINGS: For the purposes of this report, the most caudal rectangular vertebral body will be designated L5. The next most caudal trapezoidal shaped vertebral body will be designated S1. The intervening disc at the lumbosacral angle is designated L5-S1. The normal lumbar lordosis is maintained. The lumbar vertebral bodies are normal in height. Grade 1 L3-L4 anterolisthesis. The lumbar bone marrow signal is within normal limits. Multilevel disc desiccation. Intervertebral disc space height loss most prominent at L5-S1. There is no evidence of signal abnormality in the imaged distal spinal cord. The conus medullaris terminates at the level of L1. T12-L1: No significant spinal canal stenosis or neural foraminal narrowing. L1-L2: No significant spinal canal stenosis or neural foraminal narrowing. L2-L3: Disc bulge contributes to mild spinal canal stenosis. Bilateral facet arthrosis and ligamentum flavum hypertrophy. No significant neural foraminal narrowing. L3-L4: Uncovering of the disc, bilateral facet arthrosis, and ligamentum flavum hypertrophy. Mild spinal canal stenosis. No significant neural foraminal narrowing. L4-L5: Disc bulge, bilateral facet arthrosis, and ligamentum flavum hypertrophy contribute to mild spinal canal stenosis. No significant neural foraminal narrowing. L5-S1: Disc bulge. No significant spinal canal stenosis or neural foraminal narrowing. There are partially visualized multiple bilateral simple renal cysts. Partially visualized sacral stimulator lead. MRI/Spine Lumbar (Routine) IMPRESSION: Lumbar spondylosis without high-grade spinal canal or neural foraminal stenosis . Reading Location: [id number]
== END | disposition home or self-care (01) ==
PROVIDERS: PCP Pediatrics; Referring Provider Anesthesiology Pain Medicine; Visit Provider Anesthesiology Pain Medicine
DX: M48.00 Spinal stenosis, site unspecified (principal)
CPT/HCPCS: 72148